=== PATIENT | female | born 1935 | race Asian ===

== ENCOUNTER 2018-07-28 11:52 | Outpatient (CLI) | payer MEDICARE, OTHER | END 2018-07-28 23:59 | disposition home health service (06) | LOC: WOU 11:52 | PROVIDERS: ATTEND Surgery | DX: S81.811A Laceration without foreign body, right lower leg, initial encounter (principal); E11.9 Type 2 diabetes mellitus without complications; Z79.4 Long term (current) use of insulin; Z89.511 Acquired absence of right leg below knee; I73.9 Peripheral vascular disease, unspecified; R26.9 Unspecified abnormalities of gait and mobility; M19.90 Unspecified osteoarthritis, unspecified site; X58.XXXA Exposure to other specified factors, initial encounter; Y92.89 Other specified places as the place of occurrence of the external cause | CPT/HCPCS: 11043; A6402; J3490 ==

== ENCOUNTER 2018-07-31 12:57 | Outpatient (CLI) | payer MEDICARE, OTHER ==
[2018-07-31] MEDS ORDERED: BLOO-668 IN (17:06)
[2018-07-31] MEDS ORDERED: INSU100V7 SQ (17:06)
[2018-07-31] MEDS ORDERED: ACET-868 PO (17:06)
[2018-07-31] MEDS ORDERED: INSU100V27 SQ (17:06)
[2018-07-31] MEDS ORDERED: NA P133E RC (17:06)
[2018-07-31] MEDS ORDERED: LINA5TAB PO (17:06)
[2018-07-31] MEDS ORDERED: MAGN400O6 PO (17:06)
[2018-07-31] MEDS ORDERED: BISA10SU8 RC (17:06)
[2018-07-31] MEDS ORDERED: MAGN400T26 PO (17:06)
[2018-07-31] MEDS ORDERED: METF-441 PO (17:06)
[2018-07-31] MEDS ORDERED: GABA-534 PO (17:06)
[2018-07-31] MEDS ORDERED: MULT-447 PO (17:06)
[2018-07-31] MEDS ORDERED: DOCU-141 PO (17:06)
[2018-07-31] MEDS ORDERED: ASCO500T9 PO (17:06)
[2018-07-31] MEDS ORDERED: HYDR-4384 PO (17:06)
[2018-07-31] MEDS ORDERED: ATOR40TA PO (17:06)
[2018-07-31] MEDS ORDERED: MELA3TAB PO (17:06)
[2018-07-31] MEDS ORDERED: CHLO25TA2 PO (17:06)
[2018-07-31] MEDS ORDERED: ZINC220C8 PO (17:06)
[2018-07-31] MEDS ORDERED: METO25TA20 PO (17:06)
[2018-07-31] MEDS ORDERED: PENT400T12 PO (17:07)
== END 2018-07-31 23:59 ==
LOC: WOU 12:57
PROVIDERS: ATTEND Surgery
DX: T87.89 Other complications of amputation stump (principal); E11.622 Type 2 diabetes mellitus with other skin ulcer; L97.813 Non-pressure chronic ulcer of other part of right lower leg with necrosis of muscle; Z89.511 Acquired absence of right leg below knee; E11.51 Type 2 diabetes mellitus with diabetic peripheral angiopathy without gangrene; E78.5 Hyperlipidemia, unspecified; Z86.14 Personal history of Methicillin resistant Staphylococcus aureus infection; I10 Essential (primary) hypertension; Z79.4 Long term (current) use of insulin; T87.43 Infection of amputation stump, right lower extremity; L03.115 Cellulitis of right lower limb
CPT/HCPCS: 11043; A6402; J3490; Z7610

== ENCOUNTER 2018-07-31 14:09 | Inpatient (IN) | payer MEDICARE, OTHER ==
[~2018-07-31] VITALS: Ht 147.3 cm; Wt 49.2 kg
--- NOTE | 2018-07-31 14:10 | NUR ---
PT [facility] FACILITY STAFF SENT HERE BY DR MURO FROM WOUND CARE CLINIC FOR ADMISSION FOR PRE-OP. PT IS AAOX4, NOT IN RESPIRATORY DISTRESS, V/S STABLE, KEPT RESTED AND COMFORTABLE.
--- NOTE | 2018-07-31 14:55 | NUR ---
PT LABS DRAWNED AND SENT TO LAB. AWAITING RESULTS.
[2018-07-31 15:29] LABS: CALCIUM, SERUM 9.3 mg/dL (8.5-10.1); CARBON DIOXIDE 29 mmol/L (21-32); CHLORIDE 99 mmol/L (98-107); GLUCOSE 131 mg/dL (74-106); SODIUM SERUM 139 mmol/L (136-145); UREA NITROGEN, BLOOD 27 mg/dL (7-18)
[2018-07-31] MEDS ORDERED: VANCOMYCIN 1 GM in IV D5W 250 ML IV ONE (15:30)
[2018-07-31] MEDS ORDERED: PIPERACILLIN /TAZOBACTAM 3.375 G in IV D5W 50 ML IV ONE (15:30)
[2018-07-31 15:41] LABS: ALANINE AMINOTRANSFERASE 35 U/L (12-78); ALBUMIN 3.4 g/dL (3.4-5.0); ALKALINE PHOSPHATASE 109 U/L (46-116); ASPARTATE AMINOTRANSFERASE 42 U/L (15-37); B-TYPE NATRIURETIC PEPTIDE 815 PG/ML (0-125); BILIRUBIN,TOTAL 0.5 mg/dL (0.2-1.0); TOTAL PROTEIN, SERUM 8.1 g/dL (6.4-8.2)
[2018-07-31 15:49] LABS: POTASSIUM 4.8 mmol/L (3.5-5.1)
[2018-07-31 15:56] LABS: BASOPHILS # (AUTO) 0.1 /CMM (0.0-0.2); BASOPHILS % (AUTO) 0.9 % (0.0-2.0); EOSINOPHILS % (AUTO) 1.5 % (0.0-6.0); HEMATOCRIT 34 % (33-45); LYMPHOCYTES # (AUTO) 1.1 /CMM (0.8-4.8); LYMPHOCYTES % (AUTO) 17.1 % (20.0-44.0); MEAN CORPUSCULAR HGB CONC 32 g/dl (31.0-36.0); MEAN CORPUSCULAR VOLUME 89 fL (82-100); MONOCYTES # (AUTO) 0.6 /CMM (0.1-1.30); MONOCYTES % (AUTO) 8.5 % (2.0-12.0); NEUTROPHILS # (AUTO) 4.7 /CMM (1.8-8.9); PLATELET COUNT (AUTO) 206 /CMM (150-450); RED BLOOD CELL COUNT(AUTO) 3.85 MIL/uL (4.0-5.2); WHITE BLOOD COUNT (AUTO) 6.6 K/uL (4.3-11.0)
--- NOTE | 2018-07-31 16:06 | NUR ---
URINE COLLECTED AND SENT TO LAB.
--- NOTE | 2018-07-31 16:21 | NUR ---
EVAPORATOR AT BEDSIDE FOR DUPLEX SCAN.
[2018-07-31 16:29] LABS: APPEARANCE,URINE Clear (CLEAR); BILIRUBIN,URINE Negative (NEGATIVE); BLOOD, URINE Negative Ery/uL (NEGATIVE); COLOR,URINE Yellow (YELLOW); KETONES,URINE Negative (NEGATIVE); LEUKOCYTE ESTERASE ,URINE Negative (NEGATIVE); NITRITE, URINE Negative (NEGATIVE); PH,URINE 5.5 (5.0-8.0); PROTEIN,URINE Negative (NEGATIVE); UGLUCOSE Negative (NEGATIVE); UROBILINOGEN,URINE 0.2 EU/dL (0.2)
[2018-07-31] MEDS ORDERED: IV NS 0.9% 1,000 ML BAG IV ONE (16:30)
--- NOTE | 2018-07-31 16:55 | NUR ---
report given to Dustin KELLER for selena
[2018-07-31] MEDS ORDERED: ATOR40TA PO (17:06)
[2018-07-31] MEDS ORDERED: HYDR-4384 PO (17:06)
[2018-07-31] MEDS ORDERED: MAGN400T26 PO (17:06)
[2018-07-31] MEDS ORDERED: ASCO500T9 PO (17:06)
[2018-07-31] MEDS ORDERED: GABA-534 PO (17:06)
[2018-07-31] MEDS ORDERED: METF-441 PO (17:06)
[2018-07-31] MEDS ORDERED: ACET-868 PO (17:06)
[2018-07-31] MEDS ORDERED: NA P133E RC (17:06)
[2018-07-31] MEDS ORDERED: DOCU-141 PO (17:06)
[2018-07-31] MEDS ORDERED: LINA5TAB PO (17:06)
[2018-07-31] MEDS ORDERED: CHLO25TA2 PO (17:06)
[2018-07-31] MEDS ORDERED: METO25TA20 PO (17:06)
[2018-07-31] MEDS ORDERED: MELA3TAB PO (17:06)
[2018-07-31] MEDS ORDERED: BLOO-668 IN (17:06)
[2018-07-31] MEDS ORDERED: MAGN400O6 PO (17:06)
[2018-07-31] MEDS ORDERED: INSU100V7 SQ (17:06)
[2018-07-31] MEDS ORDERED: INSU100V27 SQ (17:06)
[2018-07-31] MEDS ORDERED: ZINC220C8 PO (17:06)
[2018-07-31] MEDS ORDERED: BISA10SU8 RC (17:06)
[2018-07-31] MEDS ORDERED: MULT-447 PO (17:06)
[2018-07-31] MEDS ORDERED: PENT400T12 PO (17:07)
--- NOTE | 2018-07-31 18:20 | NUR ---
CARE DIRECTOR RN NOTES ADMITTED 83 YEAR OLD FEMALE FROM ER. ARRIVED VIA GURNEY, VIA ACLS PROTOCOL. REPORT RECEIVED FROM ANTONI RN. PATIENT AWAKE, ALERT AND ORIENTED, VERBALLY RESPONSIVE AND RESPONDS TO VERBAL AND TACTILE STIMULI. BREATHING EVEN AND UNLABORED. NO CHANGES IN LOC NOTED. PATIENT ADMITTED UNDER MEDICAL SUPERVISION OF DR. RICHARDSON, MADE AWARE OF PATIENT ARRIVAL. PATIENT ORIENTED TO ROOM, STAFF, ROOM MATE, PLAN OF CARE. WILL CONTINUE TO MONITOR. BED LOCKED AND UN LOW POSITION. BILATERAL UPPER SIDE RAILS UP AND LOCKED. CALL LIGHT WITHIN EASY REACH
[2018-07-31 19:30] VITALS: BP 133/88
[2018-07-31] MEDS ORDERED: HYDROMORPHONE INJ 0.5 MG/0.5 ML SYRINGE IV PRN ×2 (19:30)
--- NOTE | 2018-07-31 19:30 | NUR ---
TELE ROVING TECHNICIAN INITIAL NOTES GOT REPORT FROM AM NURSE AND PT JUST CAME UP FROM ER. PT JUST CAME FROM WOUND CARE CLINIC AND DEBRIDEMENT DONE BY DR MURO AND SENT TO ED FOR FURTHER EVALUATION. DX OF SEPSIS AND CELLULITIS. RE-ORIENTED WHERE SHE AT AND HOW TO USED THE CALL LIGHT SYSTEM. PT ABLE TO MOVED USING WHEELCHAIR AND ABLE TO TRANSFERRED BY HERSELF. SKIN INTACT EXCEPT THE RIGHT BKA WITH DRESSING DRY AND INTACT. PT DENIES ANY PAIN OR ANY DISCOMFORT AT THIS TIME. SHE ONLY ASKED FOR SOMETHING TO EAT. SANDWICH OFFERED AND JUICE. NO SIGNS OF ANY ACUTE DISTRESS NOTED. KEPT HER WARM AND COMFORTABLE AT ALL TIMES. PLACE CALL LIGHT AT REACH. ASSESSMENT DONE AND RECORDED. WILL CONTINUE MONITORING. TELE SINUS TACH HEART RATE 110.
[2018-07-31] MEDS ORDERED: FEE PK DOSING 1 MIN EA MC ONE (19:46)
[2018-07-31 20:00] VITALS: BP 133/88
[2018-07-31] MEDS ORDERED: DEXTROSE 50%-WATER 50 ML DISP.SYRIN IV PRN (20:00)
[2018-07-31] MEDS: IV NS 0.9% 1,000 ML IV PRN (20:18)
[2018-07-31] MEDS ORDERED: HYDROMORPHONE INJ 2 MG/ML DISP.SYRIN IV PRN (21:00)
--- NOTE | 2018-07-31 22:14 | NUR ---
TELE FUND DEVELOPMENT MANAGER NOTES PAIN MGT. RIGHT BKA PAIN , DILAUDID GIVEN BRANDON IVP ORDERED BY ANOTHER NURSE ORDERED. EDUCATE PT REGARDING POSSIBLE SIDE EFFECT AND PT UNDERSTOOD WELL. WILL CONTINUE MONITORING.
[2018-07-31] MEDS: BLOOD SUGAR DIAGNOSTIC 1 EACH STRIP IN SCH (22:25)
[2018-07-31] MEDS: INSULIN REGULAR, HUMAN 100 UNIT/ML 3 ML VIAL SQ PRN (22:31)
--- NOTE | 2018-07-31 22:31 | NUR ---
TELE CUTTING SUPERVISOR NOTES BLOOD SUGAR CHECKED DONE 208, 4 UNITS OF INSULIN GIVEN BRANDON SQ ORDERED. NO SIGNS OF HYPER GLYCEMIA NOTED, IVF NS INFUSING AT THIS TIME AT 75ML/HR. WILL CONTINUE MONITORING. PLACE CALL LIGHT AT REACH.
--- NOTE | 2018-07-31 22:52 | NUR ---
TELE OFFICE EQUIPMENT TECHNICIAN NOTES RE- ASSESSMENT PT CHECKED AND SEEN RESTING WITH EYES CLOSED BUT AROUSE TO TOUCH. PT STATED FEEL BETTER .WILL CONTINUE MONITORING. PLACE CALL LIGHT AT REACH.
[2018-07-31] MEDS: PIPERACILLIN /TAZOBACTAM 2.25 G in IV D5W 50 ML IV SCH (23:29)
[2018-08-01] VITALS: BP 99/68
[2018-08-01] MEDS ORDERED: ZOSYN IVPB 3.375 G in IV D5W 50ml IV SCH ×2
--- NOTE | 2018-08-01 01:08 | NUR ---
TELE HEALTH ACTUARY NOTES PT SLEEPING COMFORTABLY IN BED WITHOUT ANY ACUTE DISTRESS OR ANY DISCOMFORT AT THIS TIME. IVF NS AT 75ML/HR INFUSING AT THIS TIME. KEPT HER WARM AND COMFORTABLE AT ALL TIMES. PLACE CALL LIGHT AT REACH. WILL CONTINUE TO MONITOR.
[2018-08-01 04:00] VITALS: BP 113/67
[2018-08-01] MEDS: PIPERACILLIN /TAZOBACTAM 2.25 G in IV D5W 50 ML IV SCH ×4 (05:54→23:23)
[2018-08-01] MEDS: BLOOD SUGAR DIAGNOSTIC 1 EACH STRIP IN SCH ×4 (06:21→22:00)
--- NOTE | 2018-08-01 06:21 | NUR ---
TELE MEDICAL OFFICE RECEPTIONIST NOTES BLOOD SUGAR CHECKED DONE 122 NO INSULIN COVERAGES AT THIS TIME. NO SIGNS OF HYPO/HYPER GLYCEMIA NOTED. ZOSYN IVP BAG INFUSING AT THIS TIME NO ADVERSE REACTION NOTED. WILL CONTINUE MONITORING.
--- NOTE | 2018-08-01 07:00 | NUR ---
TELE PLASTICS FABRICATOR AND ASSEMBLER CLOSING NOTES PT BACK TO SLEEP AFTER MORNING CARE DONE/ BLOOD SUGAR 122, NO INSULIN COVERAGE AT THIS TIME. BREATHING EVEN AND UNLABORED. STABLE BRANDON THE NIGHT AND SLEPT WELL. TELE SINUS TACH . VITAL SIGNS WITHIN NORMAL LIMIT. ALL DUE MEDS GIVEN AND ALL NEEDS MET. KEPT HER WARM AND COMFORTABLE AT ALL TIMES. PLACE CALL LIGHT AT REACH. BED ALARM SET FOR SAFETY. WILL ENDORSE TO AM NURSE FOR CONTINUITY OF CARE. PLACE CALL LIGHT AT REACH.
[2018-08-01 07:04] LABS: BASOPHILS % (AUTO) 0.5 % (0.0-2.0); EOSINOPHILS % (AUTO) 0.5 % (0.0-6.0); HEMATOCRIT 33 % (33-45); HEMOGLOBIN 10.9 g/dL (11.5-14.8); LYMPHOCYTES # (AUTO) 0.9 /CMM (0.8-4.8); LYMPHOCYTES % (AUTO) 9.3 % (20.0-44.0); MEAN CORPUSCULAR HGB CONC 33 g/dl (31.0-36.0); MEAN CORPUSCULAR VOLUME 89 fL (82-100); MONOCYTES # (AUTO) 0.7 /CMM (0.1-1.30); MONOCYTES % (AUTO) 7.3 % (2.0-12.0); NEUTROPHILS # (AUTO) 8.2 /CMM (1.8-8.9); NEUTROPHILS % (AUTO) 82.4 % (43.0-81.0); PLATELET COUNT (AUTO) 206 /CMM (150-450); RED BLOOD CELL COUNT(AUTO) 3.76 MIL/uL (4.0-5.2); WHITE BLOOD COUNT (AUTO) 9.9 K/uL (4.3-11.0)
[2018-08-01 07:24] LABS: CALCIUM, SERUM 8.4 mg/dL (8.5-10.1); CARBON DIOXIDE 27 mmol/L (21-32); CHLORIDE 102 mmol/L (98-107); CREATININE 0.8 mg/dL (0.6-1.3); GLUCOSE 132 mg/dL (74-106); POTASSIUM 3.2 mmol/L (3.5-5.1); SODIUM SERUM 139 mmol/L (136-145); UREA NITROGEN, BLOOD 16 mg/dL (7-18)
--- NOTE | 2018-08-01 07:25 | NUR ---
telephone maintainer. pt received a&0x2, Sinhala speaking and sleepy. pt spo2 88% and started on o2 via nc at 2lpm, no sob or resp distress. pt denies pain. pt with ivc at r fa g#22 intact and operational with ivf as per rx. pt bed in lowest locked position with handrailsx2 and call olivo within reach. pt requesting diet texture change, will request from hospitalist. pt briefed on poc and is without concern or complaint at this time. Addendum: 08/01/18 at 1214 by LUKAS MARIA RN wrong pt
--- NOTE | 2018-08-01 07:30 | NUR ---
HOGSHEAD WRECKER, PT RECEIVED A&0X3 TOLERATING ROOM AIR WITHOUT DISTRESS. PT REPORTS MODERATE PAIN TO RIGHT BKA. PT IVC AT LAC INTACT AND OPERATIONAL. PT ASSISTED WITH REPOSITIONING. PT BED IN LOWEST LOCKED POSITION WITH HANDRAILSX2 AND CALL VALIENTE, BELONGINGS AND COMMODE WITHIN REACH. PT ABLE TO TRANSFER TO COMMODE WITH ASSISTANCE- KNOWS TO USE CALL VALIENTE. PT BRIEFED ON POC AND IS WITHOUT CONCERN OR COMPLAINT AT THIS TIME, WILL CONTINUE POC.
[2018-08-01 08:54] VITALS: BP 126/66
[2018-08-01] MEDS ORDERED: ACETAMINOPHEN 325 MG TABLET PO PRN (09:00)
[2018-08-01] MEDS ORDERED: POTASSIUM CHLORIDE 20 MEQ TAB.PRT.SR PO ONE (09:00)
[2018-08-01] MEDS ORDERED: BISACODYL SUPP (10 MG) 10 MG/SUPP.RECT SUPP.RECT RC PRN (09:00)
[2018-08-01] MEDS ORDERED: MAGNESIUM HYDROXIDE 30 ML UDC PO PRN (09:00)
[2018-08-01] MEDS ORDERED: NA PHOS,M-B/NA PHOS,DI-BA 1 EA ENEMA RC PRN (09:00)
[2018-08-01] MEDS ORDERED: ENOXAPARIN SODIUM 40 MG/0.4 ML DISP.SYRIN SQ SCH (09:00)
[2018-08-01] MEDS: DAKINS QUARTER STRENGTH (0.125%) 480 ML BOTTLE TOP SCH (10:00)
--- NOTE | 2018-08-01 10:00 | NUR ---
MED NOTES. WOUND CARE COMPLETED BY TANIYA SHETH.
[2018-08-01] MEDS: ENOXAPARIN SODIUM 30 MG/0.3 ML DISP.SYRIN SQ SCH (10:06)
[2018-08-01] MEDS: GABAPENTIN 300 MG CAPSULE PO SCH ×2 (10:07→17:43)
[2018-08-01] MEDS: METOPROLOL TARTRATE 25 MG TABLET PO SCH ×2 (10:08→16:30)
[2018-08-01] MEDS: LINAGLIPTIN 5 MG TABLET PO SCH (10:08)
[2018-08-01] MEDS: DOCUSATE SODIUM 100 MG CAPSULE PO SCH (10:08)
[2018-08-01] MEDS: MULTIVIT W/MINERALS 1 TAB TABLET PO SCH (10:08)
[2018-08-01] MEDS: VANCOMYCIN 0.75 GM in IV D5W 250 ML IV SCH (10:09)
[2018-08-01] MEDS: PENTOXIFYLLINE 400 MG TABLET.SA PO SCH (10:09)
[2018-08-01] MEDS: ZINC SULFATE 220 MG CAPSULE PO SCH (10:10)
[2018-08-01] MEDS: MAGNESIUM OXIDE 400 MG TABLET PO SCH ×2 (10:11→17:43)
[2018-08-01] MEDS: PANTOPRAZOLE 40 MG TABLET.DR PO SCH (10:13)
[2018-08-01] MEDS: HYDROMORPHONE INJ 2 MG/ML DISP.SYRIN IV PRN (10:20)
[2018-08-01] MEDS ORDERED: BLOOD SUGAR DIAGNOSTIC 1 EACH STRIP IN SCH (12:00)
--- NOTE | 2018-08-01 12:30 | NUR ---
MED NOTE.S PT REF LUNCH INSULIN R/T LATE METFORMIN ADMIN.
[2018-08-01] MEDS: METFORMIN 850 MG TABLET PO SCH ×2 (13:07→17:43)
[2018-08-01 16:11] VITALS: BP_SYST 101; BP_SYST 87; BP_DIAS 47; BP_DIAS 50
--- NOTE | 2018-08-01 16:37 | NUR ---
MD TUTTLE OK TO HOLD CHLORTHALIDONE AT THIS TIME, PHARMACY MADE AWARE.
--- NOTE | 2018-08-01 16:38 | NUR ---
MSRN. MD AB SANTILLAN AWARE OF PT BP, 87/43. PT ASYMPTOMATIC AND ATTENDING TO ADLS WITHOUT CONCERN OR COMPLAINT AT THIS TIME.
[2018-08-01] MEDS: LACTOBACILLUS RHAMNOSUS GG 1 EACH CAP.SPRINK PO SCH (17:43)
[2018-08-01] MEDS: ASCORBIC ACID 500 MG TABLET PO SCH (17:45)
[2018-08-01] MEDS: IV NS 0.9% 1,000 ML IV PRN (17:50)
--- NOTE | 2018-08-01 18:35 | NUR ---
SUPERVISOR POWER REACTOR, PT RECEIVED A&0X3 TOLERATING ROOM AIR WITHOUT DISTRESS. PT REPORTS MODERATE PAIN TO RIGHT BKA. PT IVC AT LAC INTACT AND OPERATIONAL. PT ASSISTED WITH REPOSITIONING. PT BED IN LOWEST LOCKED POSITION WITH HANDRAILSX2 AND CALL VALIENTE, BELONGINGS AND COMMODE WITHIN REACH. PT ABLE TO TRANSFER TO COMMODE WITH ASSISTANCE- KNOWS TO USE CALL VALIENTE. PT BRIEFED ON POC AND IS WITHOUT CONCERN OR COMPLAINT AT THIS TIME, WILL CONTINUE POC. Addendum: 08/01/18 at 1839 by LUKAS MARIA RN WRONG TIME
--- NOTE | 2018-08-01 18:39 | NUR ---
ROLL BUCKER, PT REMAINS A&0X3 TOLERATING ROOM AIR WITHOUT DISTRESS. PT DENIES PAIN AT THIS TIME. PT WITH IVF PER RX. PT BP 111/60. BED IN LOWEST LOCKED POSITION WITH HANDRAILSX2 AND CALL VALIENTE, BELONGINGS AND COMMODE WITHIN REACH. PT DTR UPDATED ON PT STATUS AND POC. ALL DAY NURSE DUTIES ATTENDED TO AND PT WITHOUT CONCERN OR COMPLAINT AT THIS TIME, WILL ENDORSE TO NIGHT NURSE AT BEDSIDE FOR MT
[2018-08-01 18:46] VITALS: BP 111/60
[2018-08-01 20:00] VITALS: BP 93/53
--- NOTE | 2018-08-01 21:19 | NUR ---
Spoke with patient,speaks Tajik and few Luxembourgish. She is alert and very pleasant,resides at [facility] [phone]. She is wheelchair bound and requires assistance with adl's.Her pcp is Dr. Aguilera. Patient want to return to SNF once discharge with her wheelchair at bedside. Addendum: 08/01/18 at 2121 by JOEL CHRISTOPHER RN Amended: Links added.
--- NOTE | 2018-08-01 21:21 | NUR ---
Spoke with patient,speaks Sinhala and few Hungarian. She is alert and very pleasant,resides at [facility] [phone]. She is wheelchair bound and requires assistance with adl's.Her pcp is Dr. Aguilera. Patient want to return to SNF once discharge with her wheelchair at bedside. Addendum: 08/01/18 at 2121 by JOEL CHRISTOPHER RN Amended: Links added.
[2018-08-01] MEDS: ATORVASTATIN 40 MG TABLET PO SCH (21:39)
[2018-08-01] MEDS ORDERED: Medication Not On Formulary EA (Melatonin 6 MG) PO SCH (22:00)
[2018-08-01] MEDS: INSULIN GLARGINE, 100 UNIT/ML CARTRIDGE SQ SCH (23:20)
[2018-08-02] MEDS: VANCOMYCIN 0.75 GM in IV D5W 250 ML IV SCH ×2 (03:55→22:22)
[2018-08-02] MEDS: PIPERACILLIN /TAZOBACTAM 2.25 G in IV D5W 50 ML IV SCH ×4 (05:46→23:47)
--- NOTE | 2018-08-02 07:00 | NUR ---
NO CHANGE IN NUERO STATUS, SLEPT MOST OF THE NIGHT,DENIED ANY PAIN.
[2018-08-02] MEDS: BLOOD SUGAR DIAGNOSTIC 1 EACH STRIP IN SCH ×4 (07:16→22:22)
--- NOTE | 2018-08-02 07:19 | NUR ---
MS KRISHNA OPENING NOTES RECEIVED PT AWAKE IN BED IN NO ACUTE SIGNS OF DISTRESS. A/O X3. ROMANIAN SPEAKING, DENIES ANY PAIN OR DISCOMFORTS AT THIS TIME. ON ROOM AIR, BREATHING EVEN AND UNLABORED. IV ACCESS ON LAC INTACT AND PATENT, IVF OF NS @ 75ML/HR INFUSING, NO S/S OF INFILTRATIONS NOTED. SAFETY MEASURES IN PLACE, BED IN LOW LOCKED POSITION WITH SR UP X2. CALL LIGHT IN REACH. WILL CONTINUE TO MONITOR PT ACCORDINGLY. Addendum: 08/02/18 at 0725 by BRADLEY KAT RN CORRECTION: PT IS NOT ROMANIAN SPEAKING BUT SPEAKS MONGOLIAN AND MONEGASQUE.
[2018-08-02] MEDS: INSULIN REGULAR, HUMAN 100 UNIT/ML 3 ML VIAL SQ PRN ×3 (07:38→17:21)
[2018-08-02] MEDS: PANTOPRAZOLE 40 MG TABLET.DR PO SCH (07:40)
[2018-08-02 07:49] LABS: CALCIUM, SERUM 7.9 mg/dL (8.5-10.1); CARBON DIOXIDE 27 mmol/L (21-32); CHLORIDE 105 mmol/L (98-107); CREATININE 1.2 mg/dL (0.6-1.3); GLUCOSE 195 mg/dL (74-106); MAGNESIUM 1.6 mg/dL (1.8-2.4); POTASSIUM 3.4 mmol/L (3.5-5.1); SODIUM SERUM 141 mmol/L (136-145); UREA NITROGEN, BLOOD 12 mg/dL (7-18)
[2018-08-02 07:50] LABS: BASOPHILS % (AUTO) 0.8 % (0.0-2.0); EOSINOPHILS % (AUTO) 2.2 % (0.0-6.0); HEMATOCRIT 31 % (33-45); HEMOGLOBIN 10.2 g/dL (11.5-14.8); LYMPHOCYTES % (AUTO) 15.1 % (20.0-44.0); MEAN CORPUSCULAR HGB CONC 33 g/dl (31.0-36.0); MEAN CORPUSCULAR VOLUME 90 fL (82-100); NEUTROPHILS # (AUTO) 4.5 /CMM (1.8-8.9); NEUTROPHILS % (AUTO) 73.9 % (43.0-81.0); PLATELET COUNT (AUTO) 202 /CMM (150-450); RED BLOOD CELL COUNT(AUTO) 3.47 MIL/uL (4.0-5.2)
[2018-08-02 07:51] LABS: LYMPHOCYTES # (AUTO) 0.9 /CMM (0.8-4.8); MONOCYTES # (AUTO) 0.5 /CMM (0.1-1.30)
[2018-08-02 08:00] VITALS: BP 103/61
[2018-08-02] MEDS: MAGNESIUM OXIDE 400 MG TABLET PO SCH ×2 (08:57→16:13)
[2018-08-02] MEDS: LACTOBACILLUS RHAMNOSUS GG 1 EACH CAP.SPRINK PO SCH ×2 (08:57→16:13)
[2018-08-02] MEDS: LINAGLIPTIN 5 MG TABLET PO SCH (08:57)
[2018-08-02] MEDS: ZINC SULFATE 220 MG CAPSULE PO SCH (08:57)
[2018-08-02] MEDS: DOCUSATE SODIUM 100 MG CAPSULE PO SCH (08:58)
[2018-08-02] MEDS: METFORMIN 850 MG TABLET PO SCH ×2 (08:58→16:13)
[2018-08-02] MEDS: PENTOXIFYLLINE 400 MG TABLET.SA PO SCH (08:58)
[2018-08-02] MEDS: MULTIVIT W/MINERALS 1 TAB TABLET PO SCH (08:58)
[2018-08-02] MEDS: GABAPENTIN 300 MG CAPSULE PO SCH ×2 (08:58→16:13)
[2018-08-02] MEDS: DAKINS QUARTER STRENGTH (0.125%) 480 ML BOTTLE TOP SCH (08:59)
[2018-08-02] MEDS ORDERED: CHLORTHALIDONE 12.5 MG PO SCH (09:00)
[2018-08-02] MEDS: METOPROLOL TARTRATE 25 MG TABLET PO SCH ×2 (09:00→16:14)
[2018-08-02] MEDS: ENOXAPARIN SODIUM 30 MG/0.3 ML DISP.SYRIN SQ SCH (09:01)
--- NOTE | 2018-08-02 09:24 | NUR ---
RN NOTES COLLECTED SPECIMEN FROM RIGHT NARE FOR MRSA SCREEN. CALLED LAB TO MEDICAL MICROBIOLOGIST SPECIMEN FROM [facility].
[2018-08-02] MEDS ORDERED: POTASSIUM CHLORIDE 20 MEQ TAB.PRT.SR PO SCH (10:00)
[2018-08-02] MEDS: Magnesium 1GM/D5W 100ML PREMIX 100 ML IV SCH ×2 (10:25→11:32)
[2018-08-02] MEDS: IV NS 0.9% 1,000 ML IV PRN (10:30)
--- NOTE | 2018-08-02 11:57 | NUR ---
RN NOTES PATIENT NOTED WITH BS OF 69 MG/DL, PT IS ALERT WITH NO S/S OF HYPOGLYCEMIA. LUNCH TRAY GIVEN AND ENCOURAGED TO EAT MORE. WILL CONTINUE TO MONITOR
--- NOTE | 2018-08-02 12:24 | NUR ---
RN NOTES PT NOTED TODAY WITH LOW K 3.4, REPLACED WITH K DUR 20 MEQ PO. MG 1.6, REPLACED WITH 2GMS IV. WILL CONTINUE TO MONITOR
[2018-08-02 16:00] VITALS: BP 119/75
[2018-08-02] MEDS: ASCORBIC ACID 500 MG TABLET PO SCH (17:31)
--- NOTE | 2018-08-02 18:42 | NUR ---
MS RN CLOSING NOTES PATIENT IN BED AWAKE AND RESTING AT MODERATE HIGH BACKREST POSITION. A/O X3. ABLE TO VERBALIZED NEEDS. PT TOLERATED ROOM AIR WITH NO ACUTE SIGNS OF DISTRESS NOTED THROUGHOUT THE DAY. IV ACCESS ON LAC INTACT AND PATENT, IVF OF NS @ 75ML/HR INFUSING WELL, NO S/S OF INFILTRATIONS NOTED. ALL NEEDS AND CARE ATTENDED WELL. ALL SAFETY MEASURES KEPT IN PLACE, BED IN LOW LOCKED POSITION WITH SR UP X2. CALL LIGHT AND BEDSIDE TABLE WITHIN EASY REACH OF PT. WILL ENDORSE TO CORPORATE COMMUNICATIONS SPECIALIST NURSE FOR MT.
--- NOTE | 2018-08-02 19:42 | NUR ---
MS/RN OPENING NOTES RECEIVED PATIENT IN BED. RESTING COMFORTABLY IN BED, RESPIRATIONS EVEN AND UNLABORED, SKIN WARM TO TOUCH, NO GRIMACE OR GUARDING OBSERVED AND VERBALIZED, CAN SPEAK A LITTLE CITIZEN OF [place] BUT CAN UNDERSTAND CITIZEN OF [place] AND [place], ESTONIAN SPEAKING. CALM AND COOPERATIVE REQUIRE ASSISTANCE DUE TO RIGHT BKA, BED LOCKED, WILL MONITOR.
[2018-08-02 20:00] VITALS: BP 118/64
--- NOTE | 2018-08-02 20:10 | NUR ---
MS/RN NOTES PATIENT WAS ASKED REGARDING FLU AND PNA VACCINE HX, SPOKE WITH FAMILY CAREGIVER OVER THE PHONE AND SAID WILL CHECK WITH PATIENT WITH PCP
[2018-08-02] MEDS: HYDROCODONE/APAP 5/325MG 1 EACH TABLET PO PRN (20:36)
--- NOTE | 2018-08-02 20:38 | NUR ---
MS/RN NOTES PATIENT VERBALIZED NEED PAIN MEDICATION FOR RIGHT KNEE, OBSERVED GRIMACE AND VERBALIZED PAIN. WILL MONITOR FOR PAIN RELIEF.
[2018-08-02 20:45] VITALS: BP 118/64
[2018-08-02] MEDS: INSULIN GLARGINE, 100 UNIT/ML CARTRIDGE SQ SCH (22:00)
[2018-08-02] MEDS: ATORVASTATIN 40 MG TABLET PO SCH (22:22)
--- NOTE | 2018-08-02 22:35 | NUR ---
MS/RN NOTES PATIENT BLOOD SUGAR CHECK AT 87, PATIENT MADE AWARE NO INSULIN GIVEN AND LANTUS INSULIN NOT GIVEN BLOOD SUGAR LOW AND PATIENT REFUSED.
--- NOTE | 2018-08-02 23:30 | NUR ---
ms/rn notes PATIENT RIGHT LOWER EXTREMITY INFECTED WOUND DRESSING CHANGE, CLEANSE , WITH MOISTENED DAKINS SOLUTION APPLY TO INFECTED AREA COVER WITH GAUZE AND WRAP WITH KERLIX., PATIETN TOLERATED THE TREATMENT.
[2018-08-03] MEDS: IV NS 0.9% 1,000 ML IV PRN ×2 (03:11→23:18)
--- NOTE | 2018-08-03 03:43 | NUR ---
MS/RN NOTES PATIENT ASSISTED TO BSC, BUT REFUSE TO HAVE BED ALARM ON, MONITORING FOR SAFETY BY ROUNDING.
[2018-08-03] MEDS: PIPERACILLIN /TAZOBACTAM 2.25 G in IV D5W 50 ML IV SCH ×2 (04:55→13:23)
[2018-08-03] MEDS: BLOOD SUGAR DIAGNOSTIC 1 EACH STRIP IN SCH ×4 (06:12→21:43)
--- NOTE | 2018-08-03 06:34 | NUR ---
314-2 MS/RN NOTES PATIENT SLEPT INTERMITENTLY, COOPERATIVE TO CARE, IV ANTIBIOTIC ADMINISTERED WITH NO S/S OF ADVERSE REACTION, RESPIRATIONS EVEN AND UNLABORED, SAFETY MEASURES PROVIDED, CALL LIGHTS WITHIN REACH, BED LOCKED, BED ALARM ON, INSTRUCTED TO CALL FOR ASSISTANCE, MONITORED FOR HYPO/HYPERGLYCEMIA,ABLE TO VERBALIZE NEEDS, WILL ENDORSE TO AM RN FOR MT.
--- NOTE | 2018-08-03 07:00 | NUR ---
RN OPENING NOTES RECEIVED PT AWAKE IN BED IN NO ACUTE SIGNS OF DISTRESS. A/O X3, TAJIK SPEAKING, DENIES ANY PAIN OR DISCOMFORTS AT THIS TIME. ON ROOM AIR, BREATHING EVEN AND UNLABORED. IV ACCESS ON LAC INTACT AND PATENT, IVF OF NS @ 75ML/HR INFUSING, NO S/S OF INFILTRATIONS NOTED. SAFETY MEASURES IN PLACE, BED IN LOW LOCKED POSITION WITH SR UP X2. CALL LIGHT IN REACH. WILL CONTINUE TO MONITOR PT ACCORDINGLY.
[2018-08-03 07:39] LABS: BASOPHILS % (AUTO) 0.6 % (0.0-2.0); EOSINOPHILS % (AUTO) 3.3 % (0.0-6.0); HEMATOCRIT 34 % (33-45); HEMOGLOBIN 11.1 g/dL (11.5-14.8); LYMPHOCYTES # (AUTO) 1.3 /CMM (0.8-4.8); LYMPHOCYTES % (AUTO) 19.7 % (20.0-44.0); MEAN CORPUSCULAR HGB CONC 32 g/dl (31.0-36.0); MEAN CORPUSCULAR VOLUME 88 fL (82-100); MONOCYTES # (AUTO) 0.6 /CMM (0.1-1.30); MONOCYTES % (AUTO) 9.2 % (2.0-12.0); NEUTROPHILS # (AUTO) 4.4 /CMM (1.8-8.9); NEUTROPHILS % (AUTO) 67.2 % (43.0-81.0); PLATELET COUNT (AUTO) 214 /CMM (150-450); RED BLOOD CELL COUNT(AUTO) 3.89 MIL/uL (4.0-5.2); WHITE BLOOD COUNT (AUTO) 6.5 K/uL (4.3-11.0)
[2018-08-03 08:00] VITALS: BP 131/84
[2018-08-03 08:08] LABS: CALCIUM, SERUM 8.6 mg/dL (8.5-10.1); CHLORIDE 106 mmol/L (98-107); GLUCOSE 113 mg/dL (74-106); MAGNESIUM 1.7 mg/dL (1.8-2.4); POTASSIUM 4.2 mmol/L (3.5-5.1); SODIUM SERUM 142 mmol/L (136-145); UREA NITROGEN, BLOOD 14 mg/dL (7-18)
[2018-08-03 08:13] LABS: CARBON DIOXIDE 29 mmol/L (21-32)
[2018-08-03] MEDS: PENTOXIFYLLINE 400 MG TABLET.SA PO SCH (08:43)
[2018-08-03] MEDS: DOCUSATE SODIUM 100 MG CAPSULE PO SCH (08:43)
[2018-08-03] MEDS: PANTOPRAZOLE 40 MG TABLET.DR PO SCH (08:43)
[2018-08-03] MEDS: GABAPENTIN 300 MG CAPSULE PO SCH ×2 (08:43→16:42)
[2018-08-03] MEDS: MULTIVIT W/MINERALS 1 TAB TABLET PO SCH (08:43)
[2018-08-03] MEDS: MAGNESIUM OXIDE 400 MG TABLET PO SCH ×2 (08:43→16:42)
[2018-08-03] MEDS: LACTOBACILLUS RHAMNOSUS GG 1 EACH CAP.SPRINK PO SCH ×2 (08:43→16:42)
[2018-08-03] MEDS: ZINC SULFATE 220 MG CAPSULE PO SCH (08:43)
[2018-08-03] MEDS: LINAGLIPTIN 5 MG TABLET PO SCH (08:43)
[2018-08-03] MEDS: METOPROLOL TARTRATE 25 MG TABLET PO SCH ×2 (08:45→17:00)
[2018-08-03] MEDS: ENOXAPARIN SODIUM 30 MG/0.3 ML DISP.SYRIN SQ SCH (08:49)
[2018-08-03] MEDS: DAKINS QUARTER STRENGTH (0.125%) 480 ML BOTTLE TOP SCH (08:50)
[2018-08-03] MEDS: METFORMIN 850 MG TABLET PO SCH ×2 (09:04→16:45)
[2018-08-03] MEDS: Magnesium 1GM/D5W 100ML PREMIX 100 ML IV SCH ×2 (10:22→11:56)
[2018-08-03] MEDS: INSULIN REGULAR, HUMAN 100 UNIT/ML 3 ML VIAL SQ PRN (12:23)
[2018-08-03 16:00] VITALS: BP 107/65
[2018-08-03] MEDS: CEFTRIAXONE 1 G in IV D5W 50 ML IV SCH (16:39)
[2018-08-03] MEDS: ASCORBIC ACID 500 MG TABLET PO SCH (17:03)
--- NOTE | 2018-08-03 19:25 | NUR ---
RN OPENING NOTES PATIENT IN STABLE CONDITION. ALL NEEDS ATTENDED AND PROVIDED. ALL DUE MEDICATIONS ADMINISTERED ORDERED. KEPT PATIENT SAFE AND COMFORTABLE. BED IN LOW/LOCKED POSITION, SDIERAILS UPX2 CALL LIGHT IN REACH. ENDORSED TO NIGHT RN FOR MT. Addendum: 08/03/18 at 1951 by DELONTE MARQUEZ RN CLOSING NOTES
--- NOTE | 2018-08-03 19:30 | NUR ---
RN OPENING NOTES PT AWAKE AND RESTING IN BED. NO COMPLAINTS OF PAIN SOB OR DISTRESS AT THIS TIME. PT HAS A LEFT AC #20 RUNNING NS @75ML/HR PT TOLERATING WELL. PT WILL HAVE CTA ABD TOMORROW, WILL OBTAIN CONSENT AND INSERT 18 GAUGE IV. SAFETY PRECAUTIONS IN PLACE, BED IN LOWEST LOCKED POSITION, X2 SIDE RAILS UP AND CALL LIGHT WITHIN REACH. WILL CONTINUE TO MONITOR.
[2018-08-03 20:00] VITALS: BP 120/70
[2018-08-03] MEDS: ATORVASTATIN 40 MG TABLET PO SCH (21:43)
[2018-08-03] MEDS: HYDROMORPHONE INJ 2 MG/ML DISP.SYRIN IV PRN (21:44)
[2018-08-03] MEDS: INSULIN GLARGINE, 100 UNIT/ML CARTRIDGE SQ SCH (22:00)
--- NOTE | 2018-08-03 22:00 | NUR ---
KRISHNA NOTES JAMI HELD PT NPO @ MIDNIGHT.
[2018-08-04] MEDS: HYDROCODONE/APAP 5/325MG 1 EACH TABLET PO PRN ×2 (06:02→21:11)
--- NOTE | 2018-08-04 06:51 | NUR ---
RN CLOSING NOTES PT AWAKE AND RESTING IN BED. NO COMPLAINTS OF PAIN SOB OR DISTRESS AT THIS TIME. PT HAS A LEFT AC #20 RUNNING NS @75ML/HR PT TOLERATING WELL. PT WILL HAVE CTA ABD AORTA TODAY, CONSENT IN CHART AND ATTEMPT TO INSERT 18 GAUGE IV UNSUCCESSFUL. PT NPO SINCE MIDNIGHT. SAFETY PRECAUTIONS IN PLACE, BED IN LOWEST LOCKED POSITION, X2 SIDE RAILS UP AND CALL LIGHT WITHIN REACH. WILL ENDORSE TO DAY SHIFT NURSE FOR CONTINUITY OF CARE.
[2018-08-04] MEDS: BLOOD SUGAR DIAGNOSTIC 1 EACH STRIP IN SCH ×4 (07:16→21:05)
--- NOTE | 2018-08-04 07:20 | NUR ---
RN OPENING NOTES RECEIVED PT AWAKE IN BED IN NO ACUTE SIGNS OF DISTRESS. A/O X3, SWEDISH SPEAKING, DENIES ANY PAIN OR DISCOMFORTS AT THIS TIME. ON ROOM AIR, BREATHING EVEN AND UNLABORED. IV ACCESS ON LAC INTACT AND PATENT. SAFETY MEASURES IN PLACE, BED IN LOW LOCKED POSITION WITH SR UP X2. CALL LIGHT IN REACH. WILL CONTINUE TO MONITOR PT ACCORDINGLY.
[2018-08-04 07:39] LABS: BASOPHILS % (AUTO) 0.6 % (0.0-2.0); HEMATOCRIT 32 % (33-45); HEMOGLOBIN 10.4 g/dL (11.5-14.8); LYMPHOCYTES # (AUTO) 1.5 /CMM (0.8-4.8); LYMPHOCYTES % (AUTO) 19.8 % (20.0-44.0); MEAN CORPUSCULAR HGB CONC 33 g/dl (31.0-36.0); MEAN CORPUSCULAR VOLUME 88 fL (82-100); MONOCYTES # (AUTO) 0.6 /CMM (0.1-1.30); NEUTROPHILS # (AUTO) 5.1 /CMM (1.8-8.9); NEUTROPHILS % (AUTO) 68.6 % (43.0-81.0); PLATELET COUNT (AUTO) 234 /CMM (150-450); RED BLOOD CELL COUNT(AUTO) 3.58 MIL/uL (4.0-5.2); WHITE BLOOD COUNT (AUTO) 7.5 K/uL (4.3-11.0)
[2018-08-04 07:51] LABS: CALCIUM, SERUM 8.5 mg/dL (8.5-10.1); CARBON DIOXIDE 26 mmol/L (21-32); CHLORIDE 105 mmol/L (98-107); CREATININE 0.9 mg/dL (0.6-1.3); GLUCOSE 97 mg/dL (74-106); MAGNESIUM 1.8 mg/dL (1.8-2.4); SODIUM SERUM 141 mmol/L (136-145); UREA NITROGEN, BLOOD 15 mg/dL (7-18)
[2018-08-04 08:00] VITALS: BP 134/84
[2018-08-04] MEDS: MAGNESIUM OXIDE 400 MG TABLET PO SCH ×2 (08:16→17:09)
[2018-08-04] MEDS: PANTOPRAZOLE 40 MG TABLET.DR PO SCH (08:16)
[2018-08-04] MEDS: ZINC SULFATE 220 MG CAPSULE PO SCH (08:17)
[2018-08-04] MEDS: GABAPENTIN 300 MG CAPSULE PO SCH ×2 (08:18→17:09)
[2018-08-04] MEDS: LINAGLIPTIN 5 MG TABLET PO SCH (08:18)
[2018-08-04] MEDS: DOCUSATE SODIUM 100 MG CAPSULE PO SCH (08:18)
[2018-08-04] MEDS: MULTIVIT W/MINERALS 1 TAB TABLET PO SCH (08:18)
[2018-08-04] MEDS: LACTOBACILLUS RHAMNOSUS GG 1 EACH CAP.SPRINK PO SCH ×2 (08:18→17:09)
[2018-08-04] MEDS: PENTOXIFYLLINE 400 MG TABLET.SA PO SCH (08:19)
[2018-08-04] MEDS: METOPROLOL TARTRATE 25 MG TABLET PO SCH ×2 (08:20→17:09)
[2018-08-04] MEDS: ENOXAPARIN SODIUM 30 MG/0.3 ML DISP.SYRIN SQ SCH (08:26)
[2018-08-04] MEDS: METFORMIN 850 MG TABLET PO SCH ×2 (09:00→17:00)
[2018-08-04] MEDS: DAKINS QUARTER STRENGTH (0.125%) 480 ML BOTTLE TOP SCH (09:05)
[2018-08-04] MEDS ORDERED: IOHEXOL-350 100 ML VIAL IV ONE (11:49)
[2018-08-04] MEDS ORDERED: IV NS 0.9% 250 ML IV ONE (11:49)
[2018-08-04] MEDS ORDERED: CT SWABBABLE VALVE TRANS SET 1 EA INFUS.SET MC ONE (11:49)
--- NOTE | 2018-08-04 14:06 | NUR ---
HOLD METFORMIN FOR 2 DAYS PER RADIOLOGIST, S/P CTA ABDOMINAL AORTA WITH RUN OFF.
[2018-08-04 16:00] VITALS: BP 124/64
[2018-08-04] MEDS: CEFTRIAXONE 1 G in IV D5W 50 ML IV SCH (17:07)
[2018-08-04] MEDS: ASCORBIC ACID 500 MG TABLET PO SCH (17:15)
--- NOTE | 2018-08-04 19:32 | NUR ---
PATIENT IN STABLE CONDITION. ALL NEEDS ATTENDED AND PROVIDED, ALL DUE MEDICATIONS ADMINISTERED ORDERED. KEPT PATIENT SAFE AND COMFORTABLE. BED IN LOW/LOCKED POSITION, SIDERAILS UPX2, BED ALARM ON, CALL LIGHT IN REACH. ENDORSED TO NIGHT RN FOR MT
--- NOTE | 2018-08-04 19:45 | NUR ---
MS RN NOTE: PATIENT RESTING IN BED, NO ACUTE DISTRESS NOTED. BREATHING EVEN AND UNLABORED, NO SOB NOTED. IV TO LAC IN PLACE. NO S/S OF HYPER/HYPOGLYCEMIA NOTED. BED LOCKED AND IN LOWEST POSITION, CALL LIGHT IN REACH, WILL CONTINUE TO MONITOR.
[2018-08-04 20:00] VITALS: BP 120/69
[2018-08-04] MEDS: ATORVASTATIN 40 MG TABLET PO SCH (21:05)
--- NOTE | 2018-08-04 21:15 | NUR ---
MS RN NOTE: PATIENT COMPLAINS OF PAIN TO RIGHT KNEE 01/28, NORCO 5/325MG 1 TAB ORAL GIVEN PER MD ORDER, WILL CONTINUE TO MONITOR.
[2018-08-04] MEDS: INSULIN REGULAR, HUMAN 100 UNIT/ML 3 ML VIAL SQ PRN (21:19)
[2018-08-04] MEDS: INSULIN GLARGINE, 100 UNIT/ML CARTRIDGE SQ SCH (21:19)
--- NOTE | 2018-08-05 06:10 | NUR ---
MS RN NOTE: PATIENT RESTING IN BED, NO ACUTE DISTRESS NOTED. BREATHING EVEN AND UNLABORED, NO SOB NOTED. IV TO LAC IN PLACE. BLOOD SUGAR LEVEL 92 MG/DL, NO INSULIN NEEDED PER SLIDING SCALE. NO S/S OF HYPER/HYPOGLYCEMIA NOTED. BED LOCKED AND IN LOWEST POSITION, CALL LIGHT IN REACH, WILL ENDORSE TO CONTINUE WITH PLAN OF CARE.
[2018-08-05 06:32] LABS: CALCIUM, SERUM 8.8 mg/dL (8.5-10.1); CARBON DIOXIDE 30 mmol/L (21-32); CHLORIDE 107 mmol/L (98-107); CREATININE 0.9 mg/dL (0.6-1.3); GLUCOSE 87 mg/dL (74-106); MAGNESIUM 1.9 mg/dL (1.8-2.4); POTASSIUM 3.5 mmol/L (3.5-5.1); SODIUM SERUM 143 mmol/L (136-145); UREA NITROGEN, BLOOD 15 mg/dL (7-18)
[2018-08-05 06:35] LABS: BASOPHILS % (AUTO) 0.6 % (0.0-2.0); EOSINOPHILS % (AUTO) 4.7 % (0.0-6.0); HEMATOCRIT 31 % (33-45); HEMOGLOBIN 10.5 g/dL (11.5-14.8); LYMPHOCYTES # (AUTO) 1.3 /CMM (0.8-4.8); LYMPHOCYTES % (AUTO) 24.4 % (20.0-44.0); MEAN CORPUSCULAR HGB CONC 33 g/dl (31.0-36.0); MEAN CORPUSCULAR VOLUME 88 fL (82-100); MONOCYTES # (AUTO) 0.5 /CMM (0.1-1.30); MONOCYTES % (AUTO) 9.7 % (2.0-12.0); NEUTROPHILS # (AUTO) 3.2 /CMM (1.8-8.9); NEUTROPHILS % (AUTO) 60.6 % (43.0-81.0); PLATELET COUNT (AUTO) 246 /CMM (150-450); RED BLOOD CELL COUNT(AUTO) 3.57 MIL/uL (4.0-5.2); WHITE BLOOD COUNT (AUTO) 5.2 K/uL (4.3-11.0)
[2018-08-05] MEDS: BLOOD SUGAR DIAGNOSTIC 1 EACH STRIP IN SCH ×4 (07:11→21:43)
--- NOTE | 2018-08-05 07:18 | NUR ---
RN OPENING NOTES PT WAS RECEIVED IN BED AT LOWEST AND LOCKED POSITION WITH SIDE RAILS UP X2, A/O X3, BREATHING EVEN AND UNLABORED ON RA, NO S/S OF PAIN OR DISTRESS NOTED, IV IS PATENT AND INTACT, PT NOTED TO HAVE RIGHT BKA STUMP, SAFETY PRECAUTIONS IN PLACE, CALL LIGHT WITHIN REACH, WILL MONITOR ACCORDINGLY
[2018-08-05 08:00] VITALS: BP 137/66
[2018-08-05] MEDS: METOPROLOL TARTRATE 25 MG TABLET PO SCH ×2 (08:29→16:26)
[2018-08-05] MEDS: MULTIVIT W/MINERALS 1 TAB TABLET PO SCH (08:29)
[2018-08-05] MEDS: DOCUSATE SODIUM 100 MG CAPSULE PO SCH (08:29)
[2018-08-05] MEDS: MAGNESIUM OXIDE 400 MG TABLET PO SCH ×2 (08:29→16:25)
[2018-08-05] MEDS: GABAPENTIN 300 MG CAPSULE PO SCH ×2 (08:29→16:25)
[2018-08-05] MEDS: PENTOXIFYLLINE 400 MG TABLET.SA PO SCH (08:29)
[2018-08-05] MEDS: PANTOPRAZOLE 40 MG TABLET.DR PO SCH (08:29)
[2018-08-05] MEDS: LACTOBACILLUS RHAMNOSUS GG 1 EACH CAP.SPRINK PO SCH ×2 (08:29→16:25)
[2018-08-05] MEDS: ZINC SULFATE 220 MG CAPSULE PO SCH (08:29)
[2018-08-05] MEDS: LINAGLIPTIN 5 MG TABLET PO SCH (08:30)
[2018-08-05] MEDS: ENOXAPARIN SODIUM 30 MG/0.3 ML DISP.SYRIN SQ SCH (08:31)
[2018-08-05] MEDS: DAKINS QUARTER STRENGTH (0.125%) 480 ML BOTTLE TOP SCH (08:33)
[2018-08-05] MEDS: METFORMIN 850 MG TABLET PO SCH ×2 (08:39→16:26)
--- NOTE | 2018-08-05 10:00 | NUR ---
RN NOTES WOUND DRESSING WAS CHANGED AT THIS TIME
--- NOTE | 2018-08-05 11:51 | NUR ---
RN NOTES PT BLOOD GLUCOSE WAS NOTED TO BE 109, NO INSULIN GIVE OR NEED ACCORDING TO SS
[2018-08-05] MEDS: CEFTRIAXONE 1 G in IV D5W 50 ML IV SCH (15:17)
[2018-08-05 16:00] VITALS: BP 105/60
[2018-08-05] MEDS: ASCORBIC ACID 500 MG TABLET PO SCH (17:20)
--- NOTE | 2018-08-05 17:30 | NUR ---
RN NOTES PT BLOOD GLUCOSE WAS NOTED TO BE 104, NO INSULIN GIVE OR NEED ACCORDING TO SS
--- NOTE | 2018-08-05 18:23 | NUR ---
RN CLOSING NOTES PT IN BED AT LOWEST AND LOCKED POSITION WITH SIDE RAILS UP X2, A/O X3 ESTONIAN SPEAKING BUT UNDERSTANDS SCOTTISH, BREATHING EVEN AND UNLABORED ON RA, NO S/S OF PAIN OR DISTRESS NOTED, IV IS PATENT AND INTACT, RIGHT BKA STUMP DRESSING CHANGED, SAFETY PRECAUTIONS IN PLACE, CALL LIGHT WITHIN REACH, WILL ENDORSE TO ASSOCIATE PROFESSOR RN FOR MT
[2018-08-05 20:00] VITALS: BP 117/64
[2018-08-05] MEDS: HYDROCODONE/APAP 5/325MG 1 EACH TABLET PO PRN (21:43)
[2018-08-05] MEDS: ATORVASTATIN 40 MG TABLET PO SCH (21:43)
--- NOTE | 2018-08-05 21:45 | NUR ---
MS RN NOTE: PATIENT COMPLAINS OF PAIN TO RIGHT KNEE 01/28, NORCO 5/325MG 1 TAB ORAL GIVEN PER MD ORDER, WILL CONTINUE TO MONITOR.
[2018-08-05] MEDS: INSULIN GLARGINE, 100 UNIT/ML CARTRIDGE SQ SCH (21:50)
[2018-08-05] MEDS: INSULIN REGULAR, HUMAN 100 UNIT/ML 3 ML VIAL SQ PRN (21:51)
--- NOTE | 2018-08-06 06:20 | NUR ---
MS RN NOTE: PATIENT RESTING IN BED, NO ACUTE DISTRESS NOTED. BREATHING EVEN AND UNLABORED, NO SOB NOTED. IV TO LAC IN PLACE. BLOOD SUGAR LEVEL 106 MG/DL, NO INSULIN NEEDED PER SLIDING SCALE. NO S/S OF HYPER/HYPOGLYCEMIA NOTED. BED LOCKED AND IN LOWEST POSITION, CALL LIGHT IN REACH, WILL ENDORSE TO CONTINUE WITH PLAN OF CARE.
[2018-08-06 06:51] LABS: CALCIUM, SERUM 8.1 mg/dL (8.5-10.1); CARBON DIOXIDE 31 mmol/L (21-32); CHLORIDE 106 mmol/L (98-107); CREATININE 0.9 mg/dL (0.6-1.3); GLUCOSE 107 mg/dL (74-106); POTASSIUM 3.6 mmol/L (3.5-5.1); SODIUM SERUM 143 mmol/L (136-145); UREA NITROGEN, BLOOD 12 mg/dL (7-18)
[2018-08-06] MEDS: BLOOD SUGAR DIAGNOSTIC 1 EACH STRIP IN SCH ×2 (07:30→12:00)
--- NOTE | 2018-08-06 07:30 | NUR ---
ms rn received on bed, awake,alert,oriented x4,not in any form of distress,respirations,even and unlabored,no sob noted, lungs are clear,abdomen soft,positive bowel sound, denies pain at this time. right bka noted,w/ dressing dry and intact.no distress noted.will monitor patient's condition.
[2018-08-06 08:00] VITALS: BP 118/71
--- NOTE | 2018-08-06 08:20 | NUR ---
ms simmons breakfast served,due meds given,tolerated well.
[2018-08-06] MEDS: MULTIVIT W/MINERALS 1 TAB TABLET PO SCH (08:39)
[2018-08-06] MEDS: ZINC SULFATE 220 MG CAPSULE PO SCH (08:39)
[2018-08-06] MEDS: DOCUSATE SODIUM 100 MG CAPSULE PO SCH (08:39)
[2018-08-06] MEDS: MAGNESIUM OXIDE 400 MG TABLET PO SCH (08:39)
[2018-08-06] MEDS: LINAGLIPTIN 5 MG TABLET PO SCH (08:39)
[2018-08-06] MEDS: GABAPENTIN 300 MG CAPSULE PO SCH (08:39)
[2018-08-06] MEDS: LACTOBACILLUS RHAMNOSUS GG 1 EACH CAP.SPRINK PO SCH (08:39)
[2018-08-06] MEDS: PENTOXIFYLLINE 400 MG TABLET.SA PO SCH (08:39)
[2018-08-06 08:41] VITALS: BP 118/71
[2018-08-06] MEDS: METOPROLOL TARTRATE 25 MG TABLET PO SCH (08:41)
[2018-08-06] MEDS: ENOXAPARIN SODIUM 30 MG/0.3 ML DISP.SYRIN SQ SCH (08:42)
[2018-08-06] MEDS: METFORMIN 850 MG TABLET PO SCH (09:00)
[2018-08-06] MEDS: PANTOPRAZOLE 40 MG TABLET.DR PO SCH (09:00)
[2018-08-06] MEDS: DAKINS QUARTER STRENGTH (0.125%) 480 ML BOTTLE TOP SCH (09:02)
--- NOTE | 2018-08-06 09:10 | NUR ---
ms simmons was seen by , waiting for orders. Addendum: 08/06/18 at 1633 by CHESTER GHOSH RN WRONG DOCUMENTATION, PLS DISREGARD NOTES.
[2018-08-06] MEDS: INSULIN REGULAR, HUMAN 100 UNIT/ML 3 ML VIAL SQ PRN (12:16)
--- NOTE | 2018-08-06 14:00 | NUR ---
ms iris bob held platelet transfusion at this time. Addendum: 08/06/18 at 1633 by CHESTER GHOSH RN FAUSTINO DURAN PLS DISREGARD NOTE.
--- NOTE | 2018-08-06 14:00 | NUR ---
MS RN PATIENT TRANSFERRED TO SNF, REPORT GIVEN TO LUIS KELLER, ALL NEEDS ATTENDED.
--- NOTE | 2018-08-06 14:35 | NUR ---
ms simmons on bed,no distres noted. Addendum: 08/06/18 at 1633 by CHESTER GHOSH RN WRONG DOCUMENTATION, PLS DISREGARD.
== END 2018-08-06 14:00 | DRG 565 ==
LOC: ER 14:11 → TELE 16:49 → MED 08-01 09:05
PROVIDERS: ADMIT Legal Medicine; ATTEND Legal Medicine
DX: T87.43 Infection of amputation stump, right lower extremity (principal); L03.116 Cellulitis of left lower limb; E87.2 Acidosis; I10 Essential (primary) hypertension; Y83.5 Amputation of limb(s) as the cause of abnormal reaction of the patient, or of later complication, without mention of misadventure at the time of the procedure; Y92.009 Unspecified place in unspecified non-institutional (private) residence as the place of occurrence of the external cause; E11.51 Type 2 diabetes mellitus with diabetic peripheral angiopathy without gangrene; Z88.6 Allergy status to analgesic agent; Z88.8 Allergy status to other drugs, medicaments and biological substances; Z79.84 Long term (current) use of oral hypoglycemic drugs; Z79.4 Long term (current) use of insulin; Z79.899 Other long term (current) drug therapy; Z89.511 Acquired absence of right leg below knee; E78.5 Hyperlipidemia, unspecified; D64.9 Anemia, unspecified; I70.201 Unspecified atherosclerosis of native arteries of extremities, right leg
CPT/HCPCS: 36415; 71045-TC; 80048-TC; 80076-TC; 80202-TC; 81000-TC; 82962-TC; 83605-TC; 83735-TC; 83880; 84484-TC; 85025-TC; 85730-TC; 87040-TC; 87081-TC; 87086-TC; 93926-TC; 93971-TC; A6402; A6403; G0378; J0696; J1170; J1650; J1815; J2543; J3370; J3475; J7030; J7040; J7050; J7060; Q9967

== ENCOUNTER 2019-08-27 11:39 | Inpatient (IN) | payer MEDICARE, MEDICAID ==
[~2019-08-27] VITALS: Ht 149.9 cm; Wt 48.1 kg
--- NOTE | 2019-08-27 07:20 | NUR ---
MS KELLER NOTES PATIENT IN BED ALERT ORIENTED X 3. NO ACUTE DISTRESS NOTED. BREATHING UNLABORED. SAFETY MEASURES IN PLACE. CALL LIGHT WITHIN REACH. WILL CONTINUE TO MONITOR ACCORDINGLY. Addendum: 08/27/19 at 1902 by YOMAIRA MORALES RN DISREGARD ABOVE NOTES, WRONG PATIENT
[~2019-08-27 11:39] MED LIST: ACET-868 PO; ASCO500T9 PO; ATOR40TA PO; BISA10SU11 RC; BLOO-668 IN; CHLO25TA2 PO; DOCU-141 PO; GABA-534 PO; HYDR-4384 PO; INSU100V27 SQ; INSU100V7 SQ; LINA5TAB PO; MAGN400O6 PO; MAGN400T26 PO; MELA3TAB63 PO; METF-441 PO; METO25TA20 PO; MULT-447 PO; NA P133E RC; PENT400T17 PO; ZINC1CAP2 PO
--- NOTE | 2019-08-27 12:00 | NUR ---
BIB FAMILY S/P FELL OFF HER BED THIS AM. FAMILY CONCERN OF FREQUENT FALL. PT DENIES ANY PAIN AT THIS TIME. PATIENT A/OX4, BREATHING EVEN AND UNLABORED, NO SOB NOTED, KEPT COMFORTABLE.
--- NOTE | 2019-08-27 12:20 | NUR ---
urine sample and sent to lab
[2019-08-27 12:38] LABS: APPEARANCE,URINE Clear (CLEAR); BILIRUBIN,URINE Negative (NEGATIVE); BLOOD, URINE Trace-intact Ery/uL (NEGATIVE); COLOR,URINE Yellow (YELLOW); KETONES,URINE Negative (NEGATIVE); LEUKOCYTE ESTERASE ,URINE Negative (NEGATIVE); NITRITE, URINE Negative (NEGATIVE); PH,URINE 5.5 (5.0-8.0); PROTEIN,URINE Negative (NEGATIVE); UGLUCOSE Negative (NEGATIVE); UROBILINOGEN,URINE 0.2 EU/dL (0.2)
[2019-08-27 12:41] LABS: BACTERIA,URINE Few /HPF (None Seen); SQUAMOUS EPITHELIAL CELL,UR Few /HPF (None Seen); WBC,URINE 0-2 /HPF (0-3)
[2019-08-27 12:41] LABS: BASOPHILS % (AUTO) 0.6 % (0.0-2.0); EOSINOPHILS % (AUTO) 1.2 % (0.0-6.0); HEMATOCRIT 43 % (33-45); HEMOGLOBIN 13.6 g/dL (11.5-14.8); LYMPHOCYTES # (AUTO) 0.9 /CMM (0.8-4.8); LYMPHOCYTES % (AUTO) 18.2 % (20.0-44.0); MEAN CORPUSCULAR HGB CONC 32 g/dl (31.0-36.0); MEAN CORPUSCULAR VOLUME 85 fL (82-100); MONOCYTES # (AUTO) 0.4 /CMM (0.1-1.30); MONOCYTES % (AUTO) 8.3 % (2.0-12.0); NEUTROPHILS # (AUTO) 3.7 /CMM (1.8-8.9); NEUTROPHILS % (AUTO) 71.7 % (43.0-81.0); PLATELET COUNT (AUTO) 162 /CMM (150-450); RED BLOOD CELL COUNT(AUTO) 5.02 MIL/uL (4.0-5.2); WHITE BLOOD COUNT (AUTO) 5.2 K/uL (4.3-11.0)
[2019-08-27 12:49] LABS: CALCIUM, SERUM 9.2 mg/dL (8.5-10.1); POTASSIUM 4.4 mmol/L (3.5-5.1)
[2019-08-27] MEDS ORDERED: CLOP75TA15 PO (12:51)
--- NOTE | 2019-08-27 12:55 | NUR ---
SPEARER/MED RECON UPDATED HOME MEDICATION INFO. PATIENT AND FAMILY ARE UNABLE TO PROVIDE ANY INFO. OBTAINED INFO. FROM PHARMACY OF CHOICE ([facility]) AND PCP OFFICE (DR. HADDAD [phone]).
--- NOTE | 2019-08-27 13:20 | NUR ---
ROOM 308-1 ASSIGNED
--- NOTE | 2019-08-27 14:05 | NUR ---
called jon again [phone]
--- NOTE | 2019-08-27 14:10 | NUR ---
ATTEMPTED TO GIVE REPORT
--- NOTE | 2019-08-27 14:39 | NUR ---
PATIENT TRANSFERRED TO ROOM 308, BEDSIDE REPORT GIVEN TO YOMAIRA. PATIENT IN STABLE CONDITION.
--- NOTE | 2019-08-27 14:40 | NUR ---
MS KELLER NOTES ADMITTED PATIENT FROM ER REPORT GIVEN BY JOY KELLER, PATIENT ALERT ORIENTED X 3, SPEAKS IRISH AND UNDERSTAND SOME URDU, SISTER YEHUDA AND NIECE CASI AT BEDSIDE TO TRANSLATE. VITAL SIGNS STABLE, , NO ACUTE DISTRESS NOTED, BREATHING UNLABORED. ORIENTED TO THE ROOM, SHOW HOW TO USE CALL LIGHT, PLACED WITHIN REACH. SAFETY MEASURES IN PLACE. WILL CONTINUE TO MONITOR ACCORDINGLY. Addendum: 08/27/19 at 1526 by YOMAIRA MORALES RN DISREGARD ABOVE NOTES
--- NOTE | 2019-08-27 14:40 | NUR ---
MS KELLER NOTES ADMITTED PATIENT FROM ER REPORT GIVEN BY JOY KELLER, PATIENT ALERT ORIENTED X 3, SPEAKS ICELANDIC AND UNDERSTAND SOME RUSSIAN, SISTER YEHUDA AND DAUGHTER CASI AT BEDSIDE TO TRANSLATE. VITAL SIGNS STABLE, , NO ACUTE DISTRESS NOTED, BREATHING UNLABORED. ORIENTED TO THE ROOM, SHOW HOW TO USE CALL LIGHT, PLACED WITHIN REACH. SAFETY MEASURES IN PLACE. WILL CONTINUE TO MONITOR ACCORDINGLY. Addendum: 08/27/19 at 1609 by YOMAIRA MORALES RN DISREGARD ABOVE NOTES
--- NOTE | 2019-08-27 14:40 | NUR ---
MS RN NOTES ADMITTED PATIENT FROM ER REPORT GIVEN BY JOY KELLER, PATIENT ALERT ORIENTED X 3, SPEAKS ARMENIAN AND UNDERSTAND SOME SLOVAK, SISTER YEHUDA AND NIECE CASI AT BEDSIDE TO TRANSLATE. VITAL SIGNS STABLE, , NO ACUTE DISTRESS NOTED, BREATHING UNLABORED. ORIENTED TO THE ROOM, SHOW HOW TO USE CALL LIGHT, PLACED WITHIN REACH. SAFETY MEASURES IN PLACE. WILL CONTINUE TO MONITOR ACCORDINGLY.
--- NOTE | 2019-08-27 15:30 | NUR ---
MS RN NOTES CALLED OFFICE OF [facility] TO GET ADMISSION ORDERS, SPOKE WITH DIONNE NEVES MD UNAVAILABLE AT THIS TIME AND WILL GIVE MESSAGE TO MD. WAITING FOR CALL BACK.
[2019-08-27 16:00] VITALS: BP 164/98
[2019-08-27] MEDS ORDERED: INSULIN REGULAR, HUMAN 100 UNIT/ML 3 ML VIAL SQ PRN (17:00)
[2019-08-27] MEDS ORDERED: ONDANSETRON HCL/PF 4 MG/2 ML VIAL IV PRN (17:00)
--- NOTE | 2019-08-27 17:13 | NUR ---
MS RN NOTES RECEIVED ADMITTING ORDERS FROM [facility], ORDERS CLARIFIED AND READ BACK. NOTED AND CARRIED OUT.
[2019-08-27] MEDS: IV NS 0.9% 1,000 ML IV PRN (17:28)
[2019-08-27] MEDS ORDERED: DEXTROSE 50%-WATER 50 ML DISP.SYRIN IV PRN (17:30)
[2019-08-27] MEDS: BLOOD SUGAR DIAGNOSTIC 1 EACH STRIP IN SCH ×2 (17:56→22:00)
--- NOTE | 2019-08-27 17:56 | NUR ---
MS RN NOTES CALLED PHARMACY TO FOLLOW UP INSULIN SPOKE WITH DONIS, PHARMACY TO DELIVER, WILL ADMINISTER ONCE AVAILABLE.
[2019-08-27] MEDS ORDERED: PENTOXIFYLLINE 400 MG TABLET.SA PO PRN (18:00)
[2019-08-27] MEDS: GABAPENTIN 300 MG CAPSULE PO SCH (18:00)
[2019-08-27] MEDS: INSULIN REGULAR, HUMAN 100 UNIT/ML 3 ML VIAL SQ PRN (18:39)
--- NOTE | 2019-08-27 18:56 | NUR ---
MS RN NOTES PATIENT IN BED ALERT ORIENTED X 3. NO ACUTE DISTRESS NOTED. BREATHING UNLABORED. NEEDS ATTENDED AND ANTICIPATED. SAFETY MEASURES IN PLACE. CALL LIGHT WITHIN REACH. WILL CONTINUE TO MONITOR ACCORDINGLY.
--- NOTE | 2019-08-27 19:30 | NUR ---
RN NOTES NOTICED PT. HAS RIGHT BELOW THE KNEE AMPUTATION
--- NOTE | 2019-08-27 19:30 | NUR ---
RN NOTES RECEIVED PT. AWAKE ON BED, A/OX3, DENIES PAIN, NO SOB, CALL LIGHT WITHIN REACH, SIDERAILSUPX2, CONTINUE TO MONITOR
[2019-08-27 20:00] VITALS: BP 157/87
[2019-08-28 06:18] LABS: BASOPHILS % (AUTO) 0.6 % (0.0-2.0); EOSINOPHILS % (AUTO) 4.5 % (0.0-6.0); HEMATOCRIT 41 % (33-45); HEMOGLOBIN 13.1 g/dL (11.5-14.8); LYMPHOCYTES # (AUTO) 1.2 /CMM (0.8-4.8); LYMPHOCYTES % (AUTO) 31.1 % (20.0-44.0); MEAN CORPUSCULAR HGB CONC 32 g/dl (31.0-36.0); MEAN CORPUSCULAR VOLUME 84 fL (82-100); MONOCYTES # (AUTO) 0.6 /CMM (0.1-1.30); MONOCYTES % (AUTO) 15.9 % (2.0-12.0); NEUTROPHILS # (AUTO) 1.8 /CMM (1.8-8.9); NEUTROPHILS % (AUTO) 47.9 % (43.0-81.0); PLATELET COUNT (AUTO) 154 /CMM (150-450); RED BLOOD CELL COUNT(AUTO) 4.85 MIL/uL (4.0-5.2); WHITE BLOOD COUNT (AUTO) 3.8 K/uL (4.3-11.0)
[2019-08-28] MEDS: IV NS 0.9% 1,000 ML IV PRN ×2 (06:19→18:57)
[2019-08-28 06:36] LABS: CALCIUM, SERUM 8.8 mg/dL (8.5-10.1); CARBON DIOXIDE 27 mmol/L (21-32); CHLORIDE 104 mmol/L (98-107); CREATININE 0.9 mg/dL (0.6-1.3); GLUCOSE 139 mg/dL (74-106); POTASSIUM 3.5 mmol/L (3.5-5.1); SODIUM SERUM 141 mmol/L (136-145); UREA NITROGEN, BLOOD 19 mg/dL (7-18)
[2019-08-28] MEDS: BLOOD SUGAR DIAGNOSTIC 1 EACH STRIP IN SCH ×4 (06:47→22:29)
[2019-08-28] MEDS: PANTOPRAZOLE 40 MG TABLET.DR PO SCH ×2 (06:47→07:30)
[2019-08-28 06:55] LABS: CHOLESTEROL 200 mg/dL (<200); HDL CHOLESTEROL 44 mg/dL (40-60); LDL 139 mg/dL (0-99); TRIGLYCERIDES 127 mg/dL (30-150)
--- NOTE | 2019-08-28 06:59 | NUR ---
RN NOTES AWAKE, MORNING CARE RENDERED, NO PAIN NOTED, NO SOB, CALL LIGHT WITHIN REACH, SIDERAILSUPX2, PT. NEEDS ATTENDED
--- NOTE | 2019-08-28 08:00 | NUR ---
MS RN NOTES PATIENT IN BED RESTING NO SOB OR ACUTE DISTRESS NOTED. PATIENT ALERT, ORIENTED X3. BED IN LOW LOCKED POSITION CALL LIGHT WITHIN REACH. PERIPHERAL IV INTACT PATENT. WILL CONTINUE TO MONITOR.
[2019-08-28 08:36] VITALS: BP 150/92
[2019-08-28] MEDS: CLOPIDOGREL BISULFATE 75 MG TABLET PO SCH (08:46)
[2019-08-28] MEDS: LINAGLIPTIN 5 MG TABLET PO SCH (08:46)
[2019-08-28] MEDS: GABAPENTIN 300 MG CAPSULE PO SCH ×2 (08:46→16:44)
[2019-08-28] MEDS: INSULIN REGULAR, HUMAN 100 UNIT/ML 3 ML VIAL SQ PRN ×2 (12:30→16:44)
[2019-08-28 16:07] VITALS: BP 152/94
--- NOTE | 2019-08-28 18:47 | NUR ---
MS RN NOTES PATIENT IN BED RESTING NO SOB OR ACUTE DISTRESS NOTED. PATIENT ALERT, ORIENTED X3. NO ACUTE CHANGED NOTED DURING SHIFT. ALL DUE MEDICATIONS ADMINISTERED. ALL NEEDS MET. WILL ENDORSE CARE TO PM SHIFT.
--- NOTE | 2019-08-28 19:45 | NUR ---
RN NOTES RECEIVED PATIENT IN BED CALM, RESTING NO SIGNS OF ACUTE DISTRESS, NO SOB NOTED. PATIENT ALERT, ORIENTED X3. SAFETY MEASURES IN PLACE, ASPIRATION PRECAUTION EMPHASIZED, BED IN LOW LOCKED POSITION CALL LIGHT WITHIN EASY REACH. PERIPHERAL IV INTACT PATENT. WILL CONTINUE TO MONITOR ACCORDINGLY.
[2019-08-28 20:00] VITALS: BP 135/77
[2019-08-28 20:36] VITALS: BP 135/77
[2019-08-29 06:28] LABS: BASOPHILS % (AUTO) 0.5 % (0.0-2.0); EOSINOPHILS % (AUTO) 3.8 % (0.0-6.0); HEMATOCRIT 39 % (33-45); HEMOGLOBIN 12.6 g/dL (11.5-14.8); LYMPHOCYTES # (AUTO) 1.1 /CMM (0.8-4.8); MEAN CORPUSCULAR HGB CONC 32 g/dl (31.0-36.0); MEAN CORPUSCULAR VOLUME 84 fL (82-100); MONOCYTES # (AUTO) 0.5 /CMM (0.1-1.30); MONOCYTES % (AUTO) 10.8 % (2.0-12.0); NEUTROPHILS # (AUTO) 2.8 /CMM (1.8-8.9); NEUTROPHILS % (AUTO) 60.9 % (43.0-81.0); PLATELET COUNT (AUTO) 177 /CMM (150-450); RED BLOOD CELL COUNT(AUTO) 4.68 MIL/uL (4.0-5.2); WHITE BLOOD COUNT (AUTO) 4.5 K/uL (4.3-11.0)
[2019-08-29] MEDS: INSULIN REGULAR, HUMAN 100 UNIT/ML 3 ML VIAL SQ PRN ×3 (06:28→21:54)
[2019-08-29 06:36] LABS: CALCIUM, SERUM 8.1 mg/dL (8.5-10.1); CREATININE 0.8 mg/dL (0.6-1.3); POTASSIUM 3.1 mmol/L (3.5-5.1)
--- NOTE | 2019-08-29 06:54 | NUR ---
RN NOTES ALL NEEDS ATTENDED, ABLE TO REST AND SLEPT AT INTERVALS, KEPT CLEAN WARM AND DRY, SAFETY MEASURES IN PLACE, ASPIRATION PRECAUTION EMPHASIZED, CALL LIGHT WITHIN EASY REACH. WILL ENDORSE TO AM NURSE FOR CONTINUITY OF CARE.
[2019-08-29] MEDS: BLOOD SUGAR DIAGNOSTIC 1 EACH STRIP IN SCH ×4 (06:57→21:45)
[2019-08-29] MEDS: IV NS 0.9% 1,000 ML IV PRN ×2 (07:06→21:44)
--- NOTE | 2019-08-29 07:21 | NUR ---
MS RN NOTES PATIENT RECEIVED IN BED SLEEPING. PATIENT IS AROUSED TO NAME AND LIGHT TOUCH. PATIENT ALERT AND ORIENTED X 4. PATIENT ON ROOM AIR, NO RESPIRATORY DISTRESS PRESENT, WITH NON-LABORED BREATHING. PATIENT SKIN DRY, INTACT, AND WARM. IV ACCESS ON RIGHT FOREARM, 20 GAUGE, PATENT AND INTACT. PROVIDED COMFORT MEASURES. INITIATED SAFETY PRECAUTIONS, BED IN THE LOWEST POSITION, BED ALARM, BED LOCKED, BILATERAL SIDE RAILS UP, AND CALL LIGHT WITHIN EASY REACH. WILL CONTINUE TO MONITOR PATIENT.
[2019-08-29 08:00] VITALS: BP 125/71
[2019-08-29] MEDS ORDERED: POTASSIUM CHLORIDE 20 MEQ TAB.PRT.SR PO SCH ×2 (08:00→09:30)
[2019-08-29] MEDS: PANTOPRAZOLE 40 MG TABLET.DR PO SCH (08:05)
[2019-08-29] MEDS: CLOPIDOGREL BISULFATE 75 MG TABLET PO SCH (08:05)
[2019-08-29] MEDS: GABAPENTIN 300 MG CAPSULE PO SCH ×2 (08:05→16:20)
[2019-08-29] MEDS: LINAGLIPTIN 5 MG TABLET PO SCH (08:05)
[2019-08-29 16:00] VITALS: BP 105/47
--- NOTE | 2019-08-29 18:00 | NUR ---
MS RN NOTES PATIENT IN BED RESTING COMFORTABLY, ALERT AND ORIENTED X 4. PATIENT ON ROOM AIR, NON-LABORED BREATHING, WITH NO RESPIRATORY DISTRESS PRESENT. PATIENT IV ACCESS CLEAN, PATENT, RUNNING 75mL/HR OF NORMAL SALINE. COMFORT MEASURES PROVIDED, BED KEPT CLEAN AND DRY. SAFETY PRECAUTIONS IN PLACE, WITH BED ALARM ON, BED LOCKED AND IN THE LOWEST POSITION, BILATERAL SIDE RAILS UP, AND CALL LIGHT WITHIN EASY REACH. WILL ENDORSE MT TO UPCOMING NURSE.
--- NOTE | 2019-08-29 19:30 | NUR ---
MS RN OPENING NOTE RECEIVED PATIENT IN BED. A/OX4. TOLERATING ROOM AIR. RESPIRATIONS ARE EVEN AND UNLABORED. NO S/S SOB NOTED. DENIES PAIN AT THIS TIME. IN NO APPARENT DISTRESS. IV ACCESS IN RFA#20 RUNNING NS@75ML/HR. BED IS LOW AND LOCKED, HOB ELEVATED IN SEMI FOWLERS, SIDE RIALS UP X2, BED ALARM ON. CALL LIGHT WITHIN REACH. WILL CONTINUE TO MONITOR
[2019-08-29 20:00] VITALS: BP 129/77
[2019-08-30] MEDS: BLOOD SUGAR DIAGNOSTIC 1 EACH STRIP IN SCH ×2 (06:17→12:00)
[2019-08-30] MEDS: INSULIN REGULAR, HUMAN 100 UNIT/ML 3 ML VIAL SQ PRN (06:19)
[2019-08-30 06:20] LABS: BASOPHILS % (AUTO) 0.8 % (0.0-2.0); EOSINOPHILS % (AUTO) 3.9 % (0.0-6.0); HEMATOCRIT 39 % (33-45); HEMOGLOBIN 12.2 g/dL (11.5-14.8); LYMPHOCYTES # (AUTO) 1.4 /CMM (0.8-4.8); LYMPHOCYTES % (AUTO) 28.8 % (20.0-44.0); MEAN CORPUSCULAR HGB CONC 32 g/dl (31.0-36.0); MEAN CORPUSCULAR VOLUME 85 fL (82-100); MONOCYTES # (AUTO) 0.5 /CMM (0.1-1.30); MONOCYTES % (AUTO) 11.1 % (2.0-12.0); NEUTROPHILS # (AUTO) 2.7 /CMM (1.8-8.9); NEUTROPHILS % (AUTO) 55.4 % (43.0-81.0); PLATELET COUNT (AUTO) 160 /CMM (150-450); RED BLOOD CELL COUNT(AUTO) 4.56 MIL/uL (4.0-5.2); WHITE BLOOD COUNT (AUTO) 4.9 K/uL (4.3-11.0)
--- NOTE | 2019-08-30 06:36 | NUR ---
MS RN CLOSING NOTE PATIENT IN BED. A/OX4. REMAINS TOLERATING ROOM AIR. RESPIRATIONS ARE EVEN AND UNLABORED. NO SOB NOTED. NO C/O PAIN THROUGHOUT SHIFT. NO DISTRESS NOTED. IV ACCESS REMAINS IN RFA#20 RUNNING NS@75ML/HR. BED REMAINS LOW AND LOCKED, HOB ELEVATED IN HIGH FOWLERS, SIDE RIALS UP X2, BED ALARM ON. CALL LIGHT WITHIN REACH. WILL ENDORSE TO NEXT SHIFT.
[2019-08-30 06:43] LABS: CALCIUM, SERUM 8.4 mg/dL (8.5-10.1); CREATININE 0.9 mg/dL (0.6-1.3); MAGNESIUM 1.6 mg/dL (1.8-2.4); PHOSPHORUS 3.8 mg/dL (2.5-4.9); POTASSIUM 3.7 mmol/L (3.5-5.1)
--- NOTE | 2019-08-30 07:20 | NUR ---
MS RN NOTES PATIENT RECEIVED IN BED, SLEEPING, EASILY AWAKEN BY NAME AND LIGHT TOUCH. PATIENT ALERT AND ORIENTED X 4. PATIENT ON ROOM AIR, NO SHORTNESS OF BREATH PRESENT, WITH NON-LABORED BREATHING. PATIENT IV ACCESS IN PLACE AND INTACT. SKIN IS WARM AND DRY. PROVIDED COMFORT MEASURES, PATIENT PRESENTS AND STATES NO DISCOMFORT. SAFETY PRECAUTIONS IN PLACE WITH BED IN THE LOWEST POSITION, BED ALARM ON, BED LOCKED, BILATERAL SIDE RAILS UP, HEAD OF BED UP IN SEMI-FOWLERS, AND CALL LIGHT WITHIN EASY REACH. WILL CONTINUE TO MONITOR PATIENT.
[2019-08-30 08:00] VITALS: BP 153/83
[2019-08-30] MEDS: LINAGLIPTIN 5 MG TABLET PO SCH (08:12)
[2019-08-30] MEDS: PANTOPRAZOLE 40 MG TABLET.DR PO SCH (08:12)
[2019-08-30] MEDS: GABAPENTIN 300 MG CAPSULE PO SCH (08:12)
[2019-08-30] MEDS: CLOPIDOGREL BISULFATE 75 MG TABLET PO SCH (08:12)
[2019-08-30] MEDS ORDERED: Magnesium 1GM/D5W 100ML PREMIX 100 ML IV SCH (09:30)
[2019-08-30] MEDS ORDERED: MAGNESIUM OXIDE 400 MG TABLET PO ONE (11:00)
--- NOTE | 2019-08-30 11:33 | NUR ---
MS RN NOTES PATIENT WITH ORDER FOR DISCHARGE, TO BE TRANSFER TO [facility]. SPOKE TO AND GAVE REPORT TO KRISHNA MATHUR, .
--- NOTE | 2019-08-30 11:59 | NUR ---
MS RN NOTES PATIENT ALERT AND ORIENTED X 4, NO RESPIRATORY DISTRESS PRESENT WITH NON-LABORED BREATHING. REMOVED IV ACCESS TIP INTACT AND PRESSURE DRESSING PLACE ON SITE. NO NEW SKIN BREAKDOWN. NO ACUTE DISTRESS ON TRANSFER. PATIENT DAUGHTER BY BED SIDE. PATIENT BELONGINGS PRESENT AND COMPLETE. DISCHARGE EDUCATION PROVIDED TO PATIENT AND PATIENT DAUGHTER. PATIENT PICKED UP BY TRANSPORTATION VIA HOSPITAL PROTOCOL.
== END 2019-08-30 12:15 | DRG 641 ==
LOC: ER 11:40 → MED 13:21
PROVIDERS: ADMIT Legal Medicine; ATTEND Nurse Practitioner Acute Care
DX: E86.0 Dehydration (principal); Z74.09 Other reduced mobility; E11.9 Type 2 diabetes mellitus without complications; I10 Essential (primary) hypertension; F03.90 Unspecified dementia, unspecified severity, without behavioral disturbance, psychotic disturbance, mood disturbance, and anxiety; R29.6 Repeated falls; Z89.511 Acquired absence of right leg below knee; Z79.899 Other long term (current) drug therapy; Z79.4 Long term (current) use of insulin; Z79.02 Long term (current) use of antithrombotics/antiplatelets; Z91.81 History of falling; W19.XXXA Unspecified fall, initial encounter; Y92.039 Unspecified place in apartment as the place of occurrence of the external cause; Y99.0 Civilian activity done for income or pay
CPT/HCPCS: 36415; 70450-TC; 80048-TC; 80061-TC; 81000-TC; 82962-TC; 83735-TC; 84100-TC; 85025-TC; 87081-TC; 87086-TC; 97530-TC; G0378; J1815; J3475; J7030

== ENCOUNTER 2020-03-23 01:36 | Inpatient (IN) | payer MEDICARE, OTHER ==
[~2020-03-23] VITALS: Ht 157.5 cm; Wt 54.9 kg
[~2020-03-23 01:36] MED LIST changes: -ACET-868 PO; -ASCO500T9 PO; -ATOR40TA PO; -BISA10SU11 RC; -BLOO-668 IN; -CHLO25TA2 PO; +CLOP75TA15 PO; -DOCU-141 PO; -HYDR-4384 PO; -INSU100V27 SQ; -INSU100V7 SQ; -MAGN400O6 PO; -MAGN400T26 PO; -MELA3TAB63 PO; -METF-441 PO; -METO25TA20 PO; -MULT-447 PO; -NA P133E RC; -ZINC1CAP2 PO
--- NOTE | 2020-03-23 01:39 | NUR ---
CALLED RT FOR BIPAP
[2020-03-23] MEDS ORDERED: TERBUTALINE SULFATE 1 MG/ML VIAL ONE (01:40)
--- NOTE | 2020-03-23 01:40 | NUR ---
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 PT ARRIVED RECEIVING BREATHING TX PER printed circuit board layout designer ALBUTEROL 1MG VIA MASK. PT HAS ALSO REC'D 1 SPRAY OF NITRO ENROUTE. PT WAS TRANSFERRED TO BED 5 AND WAS PLACED ON A MONITOR. DR ANDREWS AT THE BED SIDE UPON PT'S ARRIVAL TO ASSESS THE PT.
--- NOTE | 2020-03-23 01:49 | NUR ---
RT AT BEDSIDE, PLACED ON BIPAP 15/5, RATE OF 20, 02 100%.
[2020-03-23] MEDS ORDERED: NITROGLYCERIN PACKET 1 GM PACKET ONE (01:53)
[2020-03-23] MEDS ORDERED: ENOXAPARIN SODIUM 80 MG/0.8 ML DISP.SYRIN SQ ONE ×2 (01:53→02:00)
[2020-03-23] MEDS ORDERED: methylPREDNISolone SOD SUCC 125 MG/2ML VIAL ONE (01:53)
[2020-03-23] MEDS ORDERED: ADENOSINE 6 MG/2 ML VIAL ONE (01:58)
[2020-03-23] MEDS ORDERED: ALBUTEROL FS 2.5 MG/3 ML VIAL.NEB ONE (01:59)
[2020-03-23] MEDS ORDERED: IPRATROPIUM NEB FS 0.5 MG/2.5 ML AMPUL.NEB ONE (01:59)
[2020-03-23] MEDS ORDERED: ALBUTEROL FS 2.5 MG/3 ML VIAL.NEB CONTNEB ONE (02:00)
[2020-03-23] MEDS ORDERED: IPRATROPIUM NEB FS 0.5 MG/2.5 ML AMPUL.NEB NEB ONE (02:00)
[2020-03-23] MEDS ORDERED: LEVOFLOXACIN 750 MG /D5W 150ML 150 ML IV ONE ×2 (02:00→02:01)
[2020-03-23] MEDS ORDERED: TERBUTALINE SULFATE 1 MG/ML VIAL SQ ONE (02:00)
[2020-03-23] MEDS ORDERED: methylPREDNISolone SOD SUCC 125 MG/2ML VIAL IV ONE (02:00)
[2020-03-23] MEDS ORDERED: NITROGLYCERIN PACKET 1 GM PACKET TD ONE (02:00)
[2020-03-23 02:13] LABS: BASOPHILS # (AUTO) 0.1 /CMM (0.0-0.2); BASOPHILS % (AUTO) 0.6 % (0.0-2.0); EOSINOPHILS % (AUTO) 1.7 % (0.0-6.0); HEMATOCRIT 42 % (33-45); HEMOGLOBIN 13.1 g/dL (11.5-14.8); LYMPHOCYTES # (AUTO) 5.4 /CMM (0.8-4.8); LYMPHOCYTES % (AUTO) 35.6 % (20.0-44.0); MEAN CORPUSCULAR HGB CONC 31 g/dl (31.0-36.0); MEAN CORPUSCULAR VOLUME 84 fL (82-100); MONOCYTES # (AUTO) 1.1 /CMM (0.1-1.30); MONOCYTES % (AUTO) 7.2 % (2.0-12.0); NEUTROPHILS # (AUTO) 8.3 /CMM (1.8-8.9); NEUTROPHILS % (AUTO) 54.9 % (43.0-81.0); PLATELET COUNT (AUTO) 249 /CMM (150-450); RED BLOOD CELL COUNT(AUTO) 4.98 MIL/uL (4.0-5.2); WHITE BLOOD COUNT (AUTO) 15.1 K/uL (4.3-11.0)
--- NOTE | 2020-03-23 02:36 | NUR ---
CALLED LAB FOR POTASSIUM LEVEL. PER .
--- NOTE | 2020-03-23 02:38 | NUR ---
COVID SWAB SENT TO LAB
--- NOTE | 2020-03-23 02:38 | NUR ---
URINE COLLECTED AND SENT TO LAB
--- NOTE | 2020-03-23 02:38 | NUR ---
MRSA SWAB SENT TO LAB
[2020-03-23 02:46] LABS: ALANINE AMINOTRANSFERASE 19 U/L (12-78); ALBUMIN 3.6 g/dL (3.4-5.0); ALKALINE PHOSPHATASE 114 U/L (46-116); ASPARTATE AMINOTRANSFERASE 30 U/L (15-37); B-TYPE NATRIURETIC PEPTIDE 5201 PG/ML (0-125); BILIRUBIN,DIRECT 0.1 mg/dL (0.0-0.2); BILIRUBIN,TOTAL 0.3 mg/dL (0.2-1.0); CALCIUM, SERUM 8.8 mg/dL (8.5-10.1); CARBON DIOXIDE 28 mmol/L (21-32); CHLORIDE 103 mmol/L (98-107); CREATININE 1.3 mg/dL (0.6-1.3); GLUCOSE 283 mg/dL (74-106); POTASSIUM 4.6 mmol/L (3.5-5.1); SODIUM SERUM 139 mmol/L (136-145); UREA NITROGEN, BLOOD 29 mg/dL (7-18)
[2020-03-23 02:52] LABS: ABG BASE EXCESS -13.7 mmol/L; ABG PCO2 121.5 mmHg (35.0-45.0); ABG PH 6.875 (7.350-7.450); ABG PO2 199.2 mmHg (75.0-100.0); AaDO2 392.3 mmHg; COHb 0.3 % (0.5-1.5); MetHb 0.5 % (0.0-1.5); O2Hb 97.2 % (94.0-97.0); SITE, ABG Left Radial; VENT MODE, BG BIPAP 15/5 RR20 100%
--- NOTE | 2020-03-23 02:59 | NUR ---
Stanley cano in [facility] - 03/23/20 at 0259 by LORENZA PH
[2020-03-23] MEDS ORDERED: FUROSEMIDE 40 MG/4 ML VIAL IV ONE (03:00)
[2020-03-23] MEDS ORDERED: IV NS 0.9% 500 ML BAG IV ONE ×2 (03:00→03:30)
[2020-03-23] MEDS ORDERED: LINA5TAB PO (03:04)
[2020-03-23] MEDS ORDERED: INSU100V7 SQ (03:04)
[2020-03-23] MEDS ORDERED: GABA-532 PO (03:04)
[2020-03-23] MEDS ORDERED: ATOR20TA PO (03:04)
[2020-03-23] MEDS ORDERED: PENT400T17 PO (03:04)
[2020-03-23] MEDS ORDERED: DOCU-141 PO (03:04)
[2020-03-23] MEDS ORDERED: METF-440 PO (03:04)
[2020-03-23] MEDS ORDERED: PANT40TA2 PO (03:04)
[2020-03-23] MEDS ORDERED: CLOP75TA15 PO (03:04)
--- NOTE | 2020-03-23 03:07 | NUR ---
PLACED BP CUFF ON L FOREARM BP NOTED 158/105.
[2020-03-23] MEDS ORDERED: FUROSEMIDE 40 MG/4 ML VIAL ONE (03:10)
--- NOTE | 2020-03-23 03:11 | NUR ---
DR RICHARDSON PAGED PER DR ANDREWS.
--- NOTE | 2020-03-23 03:30 | NUR ---
ADMITING ORDERS WERE OBTAINED FROM DR RICHARDSON OVER THE PHONE.
--- NOTE | 2020-03-23 05:20 | NUR ---
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 CXR showed pul,patchy right lung opacities,pulmonary edema.EKG + ST elevation.Rapid Covid (-),PCR sent -pending result.Lactic acid-5.5,troponine-1.0,BNP-5201.GIven total 1 liter NSS bolus.Adenosine 12 mg given for HR-150's,lasix 40 mg. IV, Solumedrol 125 mg. , Lovenox 70 mg. Levaquin 750 mg. given . Patient unresponsive,no cough,no gag,no movement ,no corneal reflex. On BIPAP breathing 20's ,labored,saturating 90's.
--- NOTE | 2020-03-23 05:29 | NUR ---
PT TRANSFERRED TO ROOM 103 VIA ACLS PROTOCOL
[2020-03-23 05:30] VITALS: BP 110/71
[2020-03-23] MEDS ORDERED: ONDANSETRON HCL/PF 4 MG/2 ML VIAL IV PRN (06:00)
--- NOTE | 2020-03-23 06:30 | NUR ---
called to check on patient's condition,made him aware patient came in from ER unresponsive,V/S stable on BIPAP.States he will be in to see patient a little later.Made him aware of the heart rate 130's-140's, states is on consult and will be seeing patient today.Verified if patient is DNR/DNI (patient has POLST) and he said yes patient is DNR/DNI
--- NOTE | 2020-03-23 06:30 | NUR ---
Noted patient started waking up,moving ,opens eyes with good eye contact but non verbal ,but nodding,seems to be listening ,follows simple commands.Still breathing labored on BIPAP but saturating 99-100 %.
[2020-03-23 06:48] LABS: BASOPHILS # (AUTO) 0.1 /CMM (0.0-0.2); BASOPHILS % (AUTO) 0.6 % (0.0-2.0); EOSINOPHILS % (AUTO) 0.2 % (0.0-6.0); HEMATOCRIT 42 % (33-45); HEMOGLOBIN 12.7 g/dL (11.5-14.8); LYMPHOCYTES # (AUTO) 1.4 /CMM (0.8-4.8); LYMPHOCYTES % (AUTO) 7.4 % (20.0-44.0); MEAN CORPUSCULAR HGB CONC 30 g/dl (31.0-36.0); MEAN CORPUSCULAR VOLUME 85 fL (82-100); MONOCYTES # (AUTO) 0.8 /CMM (0.1-1.30); MONOCYTES % (AUTO) 4.3 % (2.0-12.0); NEUTROPHILS # (AUTO) 16.7 /CMM (1.8-8.9); NEUTROPHILS % (AUTO) 87.5 % (43.0-81.0); PLATELET COUNT (AUTO) 249 /CMM (150-450)
[2020-03-23 06:50] LABS: CALCIUM, SERUM 7.6 mg/dL (8.5-10.1); CARBON DIOXIDE 24 mmol/L (21-32); CHLORIDE 105 mmol/L (98-107); CREATININE 1.6 mg/dL (0.6-1.3); GLUCOSE 346 mg/dL (74-106); POTASSIUM 4.1 mmol/L (3.5-5.1); SODIUM SERUM 139 mmol/L (136-145); UREA NITROGEN, BLOOD 35 mg/dL (7-18)
[2020-03-23] MEDS ORDERED: PANTOPRAZOLE 40 MG VIAL IV SCH (07:00)
--- NOTE | 2020-03-23 07:00 | NUR ---
CNC SET UP OPERATOR PATIENT ON BIPAP, 03/12/ R- 20 @ 100 PERCENT . PATIENT IS AWAKE BUT RESPONSIVE, PATIENT ON TELE MONITOR EXTERNAL. PATIENT ON NPO AT THIS TIME PER DR. WILSON. L HAND 20 AND R AC 18 INTACT, NO SIGNS OF INFECTION, NO INFILTRATION. DR. RICHARDSON INFORMATION ABOUT PATIENT CONDITION, DR POLLARD ALSO NOTIFIED PATIENT CONDITION. TALKED TO FAMILY TO CONFIRM PATIENT CODE STATUS. FAMILY IS AWARE PATIENT IS DNR/DNI BED LOCKED LOWEST POSITION CALL LIGHT WITH IN REACH ALL SAFETY MEASURE IMPLEMENTED PER HOSPITAL POLCIY
--- NOTE | 2020-03-23 07:00 | NUR ---
in the unit made him aware about patient heart rate again in the 140's-150's .
[2020-03-23] MEDS ORDERED: IV NS 0.9% 1,000 ML IV PRN (07:19)
--- NOTE | 2020-03-23 07:25 | NUR ---
Relayed Troponin of 10.46 ,on further orders made since patient is already on Lovenox.
[2020-03-23 08:00] VITALS: BP 98/74
[2020-03-23] MEDS ORDERED: ZOSYN IVPB 3.375 G in IV D5W 50ml IV SCH (08:06)
[2020-03-23 08:18] LABS: ABG BASE EXCESS -9.3 mmol/L; ABG OXYGEN SATURATION 99.1 % (92.0-98.5); ABG PCO2 75.6 mmHg (35.0-45.0); ABG PH 7.081 (7.350-7.450); ABG PO2 217.8 mmHg (75.0-100.0); AaDO2 419.6 mmHg; COHb 0.1 % (0.5-1.5); MetHb 0.3 % (0.0-1.5); O2Hb 98.7 % (94.0-97.0); SITE, ABG Left Radial; VENT MODE, BG Bipap 15/5
[2020-03-23] MEDS: METOPROLOL TARTRATE INJ 5 MG/5 ML AMPUL IVP SCH ×2 (08:30→12:44)
[2020-03-23] MEDS ORDERED: METOPROLOL TARTRATE INJ 5 MG/5 ML AMPUL IVP PRN (08:30)
[2020-03-23 08:33] LABS: C-REACTIVE PROTEIN 1.1 mg/dL (0.0-0.9)
[2020-03-23] MEDS ORDERED: ENOXAPARIN SODIUM 60 MG/0.6 ML DISP.SYRIN SQ SCH ×2 (09:00→21:00)
--- NOTE | 2020-03-23 09:02 | NUR ---
RN TELE1 - HOLD MEDICATION NOT WITH IN PERIMETERS
[2020-03-23 09:17] LABS: THYROID STIMULATING HORMONE 3.208 uIU/mL (0.358-3.74)
[2020-03-23 10:04] LABS: MAGNESIUM 1.8 mg/dL (1.8-2.4); PHOSPHORUS 6.4 mg/dL (2.5-4.9)
--- NOTE | 2020-03-23 10:05 | NUR ---
WALL COVERING CONTRACTOR NOTES RECEIVED PT FROM MARILEE KELLER FOR CONTINUITY OF CARE, PT IS AWAKE, NO SIGN OF PAIN OR DISTRESS, ON BIPAP, WITH EPISODES OF TRYING TO PULL OUT TUBES, F/C DRAINING WELL WITH CLEAR, YELLOW URINE, IV FLUIDS INFUSING WELL, KEPT WARM AND COMFORTABLE.
--- NOTE | 2020-03-23 10:14 | NUR ---
ADDENDUM RESTRAINT NOT APPLIED PATIENT CLOSELY MONITORED TO PREVENT PULLING OF IV.
--- NOTE | 2020-03-23 10:14 | NUR ---
patient awake now removing bipap ,notified dr. hawley no sedation for now and initiated bilateral soft wrist restraint per md.will continue to monitor.
--- NOTE | 2020-03-23 10:30 | NUR ---
RT Bipap settings changed to IPAP 20, RATE 12, FIO2 60% per Dr Chapin order Addendum: 03/23/20 at 1040 by STACIA WILLIAM RT Amended: Links added. Addendum: 03/23/20 at 1106 by STACIA WILLIAM RT Pt tolerating new Bipap settings well. No respiratory distress or SOB noted at this time.
--- NOTE | 2020-03-23 10:51 | NUR ---
TELE1 REPORT GIVEN TO CARY NURSE
[2020-03-23 12:00] VITALS: BP 146/96
[2020-03-23 12:44] VITALS: BP 128/58
[2020-03-23] MEDS ORDERED: PIPERACILLIN /TAZOBACTAM 3.375 G in IV D5W 100 ML IV SCH (13:00)
--- NOTE | 2020-03-23 13:15 | NUR ---
PATIENT NO VITAL SIGNS,NONRESPONSIVE,PRONOUNCED WITH DR. WORTHY.
--- NOTE | 2020-03-23 13:20 | NUR ---
RT With Dr. Chapin at bedside, Bipap turned off and removed due to patient . Addendum: 03/23/20 at 1345 by STACIA WILLIAM RT Amended: Links added.
--- NOTE | 2020-03-23 14:10 | NUR ---
FAMILY AWARE AND STILL WAITING FOR MORTUARY INSTRUCTED TO CALL NURSING SUP ONCE READY TO BUSINESS DEVELOPMENT AGENT BODY IN [facility] [place],ADMITTING MARIVEL NOTIFIED,DR. RICHARDSON NOTIFIED,[facility] NOTIFIED AND WITH CASE #[id number] AND [place] REASED BODY TO MORTUARY OF CHOICE.
--- NOTE | 2020-03-23 15:37 | NUR ---
RN NOTES POST MORTEM CARE PROVIDED, IDENTIFICATION TAGS APPLIED.
--- NOTE | 2020-03-23 16:00 | NUR ---
RN NOTES PT'S BODY PICKED UP BY SECURITY STAFF GOING TO [facility].
[2020-03-24] MEDS ORDERED: LEVOFLOXACIN 500 MG /D5W 100ML 500 MG in PREMIX 1 EA IV SCH (02:30)
== END 2020-03-23 13:15 | disposition expired | DRG 871 ==
LOC: ER 01:38 → ICU 03:31 → TELE-TD 03:59 → TELE1 08:42
PROVIDERS: ADMIT Legal Medicine; ATTEND Legal Medicine
PROC: 5A1935Z Respiratory Ventilation, Less than 24 Consecutive Hours (ICD-10-PCS; principal; 2020-03-23)
DX: A41.9 Sepsis, unspecified organism (principal); J18.9 Pneumonia, unspecified organism; J96.01 Acute respiratory failure with hypoxia; J96.02 Acute respiratory failure with hypercapnia; I50.23 Acute on chronic systolic (congestive) heart failure; I21.9 Acute myocardial infarction, unspecified; N17.0 Acute kidney failure with tubular necrosis; E87.2 Acidosis; G93.40 Encephalopathy, unspecified; I13.0 Hypertensive heart and chronic kidney disease with heart failure and stage 1 through stage 4 chronic kidney disease, or unspecified chronic kidney disease; K55.1 Chronic vascular disorders of intestine; I77.4 Celiac artery compression syndrome; I95.9 Hypotension, unspecified; E11.22 Type 2 diabetes mellitus with diabetic chronic kidney disease; E11.51 Type 2 diabetes mellitus with diabetic peripheral angiopathy without gangrene; E78.5 Hyperlipidemia, unspecified; F03.90 Unspecified dementia, unspecified severity, without behavioral disturbance, psychotic disturbance, mood disturbance, and anxiety; H26.9 Unspecified cataract; K21.9 Gastro-esophageal reflux disease without esophagitis; Z89.511 Acquired absence of right leg below knee; Z79.899 Other long term (current) drug therapy; Z79.4 Long term (current) use of insulin; Z79.02 Long term (current) use of antithrombotics/antiplatelets; Z66 Do not resuscitate; Z88.6 Allergy status to analgesic agent; Z88.8 Allergy status to other drugs, medicaments and biological substances; Z79.84 Long term (current) use of oral hypoglycemic drugs; N18.9 Chronic kidney disease, unspecified; I25.10 Atherosclerotic heart disease of native coronary artery without angina pectoris; I70.1 Atherosclerosis of renal artery; I70.8 Atherosclerosis of other arteries; I70.201 Unspecified atherosclerosis of native arteries of extremities, right leg; N28.1 Cyst of kidney, acquired; R57.0 Cardiogenic shock
CPT/HCPCS: 36415; 36600; 71045-TC; 80048-TC; 80061-TC; 80076-TC; 82728-TC; 82803-TC; 83605-TC; 83615-TC; 83735-TC; 83880; 84100-TC; 84439-TC; 84443-TC; 84484-TC; 85025-TC; 85378-TC; 85730-TC; 86140-TC; 87040-TC; 87081-TC; 93307-TC; 94660; 94799-TC; A4216; C9113; C9803-CS; G0378; J0153; J1650; J1940; J1956; J2543; J2930; J3105; J3490; J7040; J7060; U0003-CS